=== PATIENT | female | born 1970 | race Caucasian/White ===

== ENCOUNTER → 2016-05-20 | Outpatient (CLI) | payer OTHER ==
[2015-08-19 11:03] VITALS: BP 103/67
[~2016-05-20] MED LIST: ALBU2.5V5 NEB; CALC1TAB PO; CETI10TA22 PO; DICL50TA2 PO; FLUC150T PO; FLUT9.9S NS; MULT1TAB52 PO; PROAIR HFA8.5 GM IH; VENTOLIN HFA18 GM INH
--- NOTE | 2016-05-20 16:23 | RAD ---
Chest CT without contrast Indications: Cough for one year. New antibiotics. Technique: Noncontrast helical CT scanning of the chest was performed. PQRS Compliance Statement: One or more of the following individualized dose reduction techniques were utilized for this examination: 1. Automated exposure control 2. Adjustment of the mA and/or kV according to patient size 3. Use of iterative reconstruction technique Comparison: December 17, 2015. Findings: No enlarging thoracic lymphadenopathy is seen. No focal aneurysmal dilatation of the thoracic aorta is seen. The heart size is normal and no pericardial effusion is seen. Again seen are bilateral interstitial and nodular lung infiltrates some of which exhibit a tree-in-bud appearance. There is no change on the right side. There has been interval improvement in the lung infiltrate within the anterior basal and and lateral basal segments of the left lower lobe. However, there is an increase in this infiltrate within the posterior basal segment of the left lower lobe. No enlarging lung mass seen. No lung infiltrate with air bronchograms is seen. Bronchiectasis is again apparent. Postoperative changes of the right lung field are again apparent. No pleural effusion or pneumothorax is seen. The proximal bronchial tree is patent. No adrenal mass is seen. No osteolytic process is seen. IMPRESSION: Bilateral interstitial and nodular lung infiltrates including tree-in-bud appearance type lung infiltrates. Stable the right side. Improvement of the anterior and lateral basal segments of the left lower lobe but worsening in the posterior basal segment of the left lower lobe.
== END | disposition home or self-care (01) ==
LOC: CT 13:07
PROVIDERS: ATTEND Internal Medicine Critical Care Medicine
DX: J84.9 Interstitial pulmonary disease, unspecified (principal)
CPT/HCPCS: 71250

== ENCOUNTER → 2017-05-19 | Outpatient (CLI) | payer OTHER | END | disposition home or self-care (01) | LOC: CT 14:38 | DX: A31.0 Pulmonary mycobacterial infection (principal); J84.9 Interstitial pulmonary disease, unspecified; J47.0 Bronchiectasis with acute lower respiratory infection; R05 Cough | CPT/HCPCS: 71250 ==

== ENCOUNTER → 2021-02-10 | Outpatient (CLI) | payer BC, OTHER ==
[2015-08-19 11:03] VITALS: BP 103/67
[~2021-02-10] MED LIST changes: +ALBU2.5V8 IH; -CETI10TA22 PO; +CETI10TA74 PO; +MULT-445 PO; -MULT1TAB52 PO; -PROAIR HFA8.5 GM IH
--- NOTE | 2021-02-10 16:37 | KCIC ---
EXAMINATION: DG VIDEO SWALLOW STUDY (ESOPHAGRAM) CLINICAL HISTORY: Intermittent dysphagia x1 year. TECHNIQUE: Double contrast esophagram performed utilizing effervescent granules followed by oral admi nistration of thick and thin barium. - Number of Images: 16 - Fluoroscopy Time: 1:06 (minutes:seconds) COMPARISON: None FINDINGS: Hypopharynx and cervical esophagus unremarkable. No evidence of esophageal stricture, ring, or mass. No evidence of esophagitis. No hiatal hernia. No reflux elicited despite provocative maneuvers. Esophageal motility within normal limits. IMPRESSION: Unremarkable esophagram. Electronically signed by: Jose Sullivan DO (02/10/2021 4:35 PM) [id number]
== END ==
LOC: KCIC 15:39
PROVIDERS: ATTEND Internal Medicine Gastroenterology
DX: R13.10 Dysphagia, unspecified (principal)
CPT/HCPCS: 74220

== ENCOUNTER → 2021-02-27 | Day surgery (SDC) | payer BC ==
[~2021-02-27] VITALS: Ht 170.2 cm; Wt 70.0 kg
[~2021-02-27] MED LIST changes: +HYDROmorphone 2 MG/ML INJ. IVP PRN; +IV RINGERS,LACTATED 1000ML 1,000 ML IV SCH; +MORPHINE SULFATE 2 MG/ML INJ. IVP PRN; +PROCHLORPERAZINE 10 MG/2 ML VIAL. IVP PRN
[2021-02-27 09:31] VITALS: BP 89/65
[2021-02-27 11:20] VITALS: BP 116/71
== END | disposition home or self-care (01) ==
LOC: ENDOS 08:57
PROVIDERS: ATTEND Internal Medicine Gastroenterology
DX: R19.5 Other fecal abnormalities (principal); R13.10 Dysphagia, unspecified; K64.0 First degree hemorrhoids; R05.3 Chronic cough; K21.00 Gastro-esophageal reflux disease with esophagitis, without bleeding; K44.9 Diaphragmatic hernia without obstruction or gangrene; K62.1 Rectal polyp; K29.50 Unspecified chronic gastritis without bleeding; K63.89 Other specified diseases of intestine; K31.89 Other diseases of stomach and duodenum; J45.909 Unspecified asthma, uncomplicated; F32.9 Major depressive disorder, single episode, unspecified; Z79.899 Other long term (current) drug therapy; Z88.1 Allergy status to other antibiotic agents; Z88.8 Allergy status to other drugs, medicaments and biological substances; Z98.890 Other specified postprocedural states
CPT/HCPCS: 43239; 43450; 45380; 88305; 88342

== ENCOUNTER 2021-05-18 16:46 | Inpatient (IN) | payer BC ==
[~2021-05-18] VITALS: Ht 170.2 cm; Wt 76.0 kg
[~2021-05-18 16:46] MED LIST changes: -HYDROmorphone 2 MG/ML INJ. IVP PRN; -IV RINGERS,LACTATED 1000ML 1,000 ML IV SCH; -MORPHINE SULFATE 2 MG/ML INJ. IVP PRN; -PROCHLORPERAZINE 10 MG/2 ML VIAL. IVP PRN
[2021-05-18] MEDS ORDERED: RACEPINEPHRINE 2.25% 0.5 ML NEBU. ONE (17:14)
[2021-05-18] MEDS ORDERED: methylPREDNISolone SOD SUCC PF 125 MG/2 ML VIAL. IV ONE (17:15)
[2021-05-18] MEDS ORDERED: IV NORMAL SALINE 1000ML BAG 1,000 ML IV ONE (17:15)
[2021-05-18] MEDS ORDERED: EPINEPHrine 1 MG/ML VIAL IM ONE ×2 (17:15)
[2021-05-18] MEDS ORDERED: MAGNESIUM SULFATE 2GM 50 ML IV ONE (17:15)
[2021-05-18] MEDS ORDERED: IPRATRPIUM/ALBUTEROL 0.5/2.5MG 3 ML NEBU. NEB ONE (17:15)
[2021-05-18 17:38] LABS: BASO # 0.1 x10^3/uL (0.0-0.2); BASO % 1 % (0-3); EOS # 0.1 x10^3/uL (0.0-0.7); EOS % 1 % (0-3); HEMATOCRIT 41.7 % (36.0-47.0); HEMOGLOBIN 14.4 g/dL (12.0-15.5); LYMPH # 1.8 x10^3/uL (1.0-4.8); LYMPH % 17 % (24-48); MEAN CORPUSCULAR HEMOGLOBIN 30 pg (25-35); MEAN CORPUSCULAR HGB CONC 35 g/dL (31-37); MEAN CORPUSCULAR VOLUME 85 fL (79-100); MONO # 1.1 x10^3/uL (0.0-1.1); MONO % 10 % (0-9); NEUT # 7.5 x10^3/uL (1.8-7.7); NEUT % 71 % (31-73); PLATELET COUNT 297 x10^3/uL (140-400); RED BLOOD COUNT 4.89 x10^6/uL (3.50-5.40); RED CELL DISTRIBUTION WIDTH 14.4 % (11.5-14.5); WHITE BLOOD COUNT 10.6 x10^3/uL (4.0-11.0)
[2021-05-18 17:40] LABS: BASE EXCESS ABG 1 mmol/L (-3-3); HCO3 ABG 22 mmol/L (21-28); PCO2 ABG 27 mmHg (35-46); PO2 ABG 136 mmHg (75-108); SAT O2 ABG 99 % (92-99)
[2021-05-18 17:43] LABS: FIO2 ABG 10 L Mask
[2021-05-18 17:55] LABS: CALCIUM 9.2 mg/dL (8.5-10.1); POTASSIUM 3.9 mmol/L (3.5-5.1)
[2021-05-18 18:01] LABS: ALBUMIN/GLOBULIN RATIO 1.1 (1.0-1.7); MAGNESIUM 1.8 mg/dL (1.8-2.4); TOTAL BILIRUBIN 0.2 mg/dL (0.2-1.0); TOTAL PROTEIN 7.5 g/dL (6.4-8.2)
--- NOTE | 2021-05-18 18:46 | PHYS DOC ---
Past Medical History Additional Past Medical Histor: SEASONAL ALLERGY, MAC Past Surgical History: Other Additional Past Surgical Histo: RIGHT MIDDLE LOBE BIOPSY Smoking Status: Never Smoker Adult General Chief Complaint Chief Complaint: ASTHMA HPI HPI The patient is a 51-year-old female with a history of asthma/COPD (severe, with multiple hospitalizations in the past) as well as some form of interstitial lung disease (she and her are unable to be more specific but state that patient follows with Dr. Loaiza of pulmonology; no notes are readily accessible for review since the patient's last admission in 2015). She has never smoked. Ms. Díaz presents for evaluation of progressively worsening shortness of breath over the past 3 to 4 days. Called to the waiting room upon arrival as after the patient rolled in from the parking lot she became severely dyspneic. On auscultation, moving very little air and struggling to breathe. Symptoms feel consistent with prior asthma exacerbation. Alert and responsive. Back to an ED bed immediately and intramuscular epinephrine, continuous bronchodilator therapy, methylprednisolone and magnesium given with significant improvement. Patient placed on BiPAP as well. With these interventions, patient has dramatically improved. Unable to provide much history initially aside from indicating that she was not having any chest pain and was not hurting anywhere. Review of Systems Review of Systems A 12 point review of systems was completed and was negative except where noted in HPI above. Current Medications Current Medications Current Medications Medications (Trade) Dose Ordered Sig/Dionisio Start Time Stop Time Status Last Admin Dose Admin Albuterol/ Ipratropium (Duoneb) 3 ml 1X ONCE 05/18/21 17:15 05/18/21 17:16 DC Epinephrine (S2 Racepinephrine) 0.5 ml STK-MED ONCE 05/18/21 17:14 05/18/21 17:14 DC Epinephrine HCl (Adrenalin) 0.5 mg 1X ONCE 05/18/21 17:15 05/18/21 17:21 DC Magnesium Sulfate 50 ml @ 25 mls/hr 1X ONCE 05/18/21 17:15 05/18/21 19:14 05/18/21 17:45 25 MLS/HR Methylprednisolone Sodium Succinate (SOLU-Medrol 125MG VIAL) 125 mg 1X ONCE 05/18/21 17:15 05/18/21 17:21 DC 05/18/21 17:45 125 MG Sodium Chloride 1,000 ml @ 1,000 mls/hr 1X ONCE 05/18/21 17:15 05/18/21 18:14 DC 05/18/21 17:45 1,000 MLS/HR Allergies Allergies Allergies Coded Allergies Type Severity Reaction Last Updated Verified aspirin Allergy Intermediate swelling and nose bleeds 05/18/21 Yes ciprofloxacin Allergy Intermediate Rash 05/18/21 Yes shrimp Allergy Intermediate 05/18/21 Yes diclofenac Adverse Reaction Mild Pt can only take POTASSIUM salt of Diclofenac 05/18/21 Yes Physical Exam Physical Exam 51-year-old female appearing nontoxic and in moderate respiratory distress. Head is normocephalic and atraumatic. Neck is supple and nontender. Oropharynx is moist. Lungs with minimal air movement and soft wheezes heard to all kasper. There is a normal S1 and S2 without rubs or gallops and capillary refill is appropriate, less than 2 seconds globally. Abdomen is soft, nontender nondistended without pulsatile mass. Skin is warm and dry without cyanosis, clubbing or edema. Psychiatrically, the patient demonstrates appropriate mood and affect and is alert. Evaluation of the extremities reveals BUEs and BLEs neurovascularly intact distally with strength 5-5, sensation intact light touch in all nerve distributions, radial, DP and PT pulses 2+ and equal bilaterally, capillary refill less than 2 seconds, hands and feet warm and well-perfused. No dependent peripheral edema distally. No calf tenderness or swelling bilaterally. Homans test is negative bilaterally. Current Patient Data Vital Signs Vital Signs Date Time Temp Pulse Resp B/P (MAP) Pulse Ox O2 Delivery O2 Flow Rate FiO2 05/18/21 18:07 100 BiPAP/CPAP 05/18/21 17:13 97.6 109 40 160/97 (118) 15.0 97.6 Lab Values Laboratory Tests Test 05/18/21 17:22 05/18/21 17:33 White Blood Count 10.6 x10^3/uL (4.0-11.0) Red Blood Count 4.89 x10^6/uL (3.50-5.40) Hemoglobin 14.4 g/dL (12.0-15.5) Hematocrit 41.7 % (36.0-47.0) Mean Corpuscular Volume 85 fL (79-100) Mean Corpuscular Hemoglobin 30 pg (25-35) Mean Corpuscular Hemoglobin Concent 35 g/dL (31-37) Red Cell Distribution Width 14.4 % (11.5-14.5) Platelet Count 297 x10^3/uL (140-400) Neutrophils (%) (Auto) 71 % (31-73) Lymphocytes (%) (Auto) 17 % (24-48) L Monocytes (%) (Auto) 10 % (0-9) H Eosinophils (%) (Auto) 1 % (0-3) Basophils (%) (Auto) 1 % (0-3) Neutrophils # (Auto) 7.5 x10^3/uL (1.8-7.7) Lymphocytes # (Auto) 1.8 x10^3/uL (1.0-4.8) Monocytes # (Auto) 1.1 x10^3/uL (0.0-1.1) Eosinophils # (Auto) 0.1 x10^3/uL (0.0-0.7) Basophils # (Auto) 0.1 x10^3/uL (0.0-0.2) Sodium Level 142 mmol/L (136-145) Potassium Level 3.9 mmol/L (3.5-5.1) Chloride Level 104 mmol/L (98-107) Carbon Dioxide Level 27 mmol/L (21-32) Anion Gap 11 (6-14) Blood Urea Nitrogen 10 mg/dL (7-20) Creatinine 1.0 mg/dL (0.6-1.0) Estimated GFR (Cockcroft-Gault) 58.0 BUN/Creatinine Ratio 10 (6-20) Glucose Level 96 mg/dL (70-99) Calcium Level 9.2 mg/dL (8.5-10.1) Magnesium Level 1.8 mg/dL (1.8-2.4) Total Bilirubin 0.2 mg/dL (0.2-1.0) Aspartate Amino Transferase (AST) 49 U/L (15-37) H Alanine Aminotransferase (ALT) 60 U/L (14-59) H Alkaline Phosphatase 125 U/L (46-116) H Troponin I High Sensitivity < 4 ng/L (4-50) L JV-Buq-B-Type Natriuretic Peptide 224 pg/mL (0-124) H Total Protein 7.5 g/dL (6.4-8.2) Albumin 4.0 g/dL (3.4-5.0) Albumin/Globulin Ratio 1.1 (1.0-1.7) O2 Saturation 99 % (92-99) Arterial Blood pH 7.54 (7.35-7.45) H Arterial Blood pCO2 at Patient Temp 27 mmHg (35-46) L Arterial Blood pO2 at Patient Temp 136 mmHg (75-108) H Arterial Blood HCO3 22 mmol/L (21-28) Arterial Blood Base Excess 1 mmol/L (-3-3) FiO2 10 l mask Laboratory Tests 05/18/21 17:22 Laboratory Tests 05/18/21 17:22 EKG EKG Sinus rhythm, rate 94, no acute ST elevation or depression, ME 108, QRS 78, QTc 446, EP interpretation. Nonischemic tracing, intervals appropriate. Radiology/Procedures Radiology/Procedures XR chest: Hyperexpanded lung kasper. No obvious confluent infiltrates. EP interpretation. Formal radiology interpretation is to follow. Course & Med Decision Making Course & Med Decision Making Patient dramatically improved as per narrative above. Resting comfortably on BiPAP and moving air well, able to speak comfortably in full sentences. Will likely be able to be titrated off BiPAP in the near future. Work-up thus far unremarkable and reassuring. Will cover with a dose of Rocephin for infectious etiologies after cultures. Have added on a D-dimer. Will bring in for further care under Dr. Cross, who graciously accepts. Critical care time was 47 minutes for acute hypoxemic respiratory failure. Dragon Disclaimer Dragon Disclaimer This electronic medical record was generated, in whole or in part, using a voice recognition dictation system. Departure Departure Impression: Primary Impression: Asthma with acute exacerbation Additional Impression: Acute hypoxemic respiratory failure Disposition: ADMITTED INPATIENT Condition: GUARDED Referrals: EDILBERTO MCINTYRE (PCP) Problem Qualifiers Primary Impression: Asthma with acute exacerbation Asthma severity: severe Asthma persistence: persistent Qualified Codes: J45.51 - Severe persistent asthma with (acute) exacerbation MARLY TEMPEL MD May 18, 2021 18:46
[2021-05-18] MEDS ORDERED: ONDANSETRON PF 4 MG/2 ML VIAL. IVP PRN (19:00)
[2021-05-18] MEDS ORDERED: IPRATRPIUM/ALBUTEROL 0.5/2.5MG 3 ML NEBU. NEB SCH ×2 (19:00→22:00)
[2021-05-18] MEDS ORDERED: ACETAMINOPHEN 325 MG TABLET. PO PRN (19:00)
[2021-05-18] MEDS ORDERED: methylPREDNISolone SOD SUCC PF 125 MG/2 ML VIAL. IV SCH (19:00)
[2021-05-18] MEDS ORDERED: cefTRIAXone IV Push 1 GM VIAL. IVP ONE (19:00)
[2021-05-18 19:39] LABS: INFLUENZA A PATIENT NEGATIVE (NEGATIVE); INFLUENZA B PATIENT NEGATIVE (NEGATIVE)
--- NOTE | 2021-05-18 19:59 | RAD ---
Exam: Chest one view INDICATION: Short of air TECHNIQUE: Frontal view of the Comparisons: Chest CT 05/19/2017 FINDINGS: The cardiomediastinal silhouette and pulmonary vessels are within normal limits. Strandy bibasilar airspace disease. No pleural effusion. IMPRESSION: Strandy bibasilar airspace disease may be infectious or inflammatory in etiology. Electronically signed by: Gab Duong MD (05/18/2021 7:57 PM) TARUN
[2021-05-18] MEDS ORDERED: FLUT1BLS3 PO (20:18)
[2021-05-18] MEDS ORDERED: CEPH500C PO (20:18)
[2021-05-18 20:20] VITALS: BP 140/64
--- NOTE | 2021-05-18 22:11 | PDOC1 ---
History and Physical Date of Admission Date of Admission DATE: 05/18/21 TIME: 22:11 Source Source: Chart review, Patient History of Present Illness History of Present Illness The patient is a 51-year-old female with known prior lung disease, admit for progressively worsening shortness of breath over days. She has dry chronic cough, has 3 days of worsening shortness of breath and chills, which is normal for an exacerbation for her. In the waiting room, she was severely dyspneic, RT called stat to the ER. Treated as asthma, BIPAP started, steroids, Dr. Gomez found she was moving very little air and struggling to breathe. 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, her daughter is a Family practice resident in [place], Past Medical History Past Medical History asthma/COPD interstitial lung disease Cardiovascular: No pertinent hx Pulmonary: Asthma, Bronchitis, COPD, Other GI: No pertinent hx Heme/Onc: No pertinent hx Endocrine: No pertinent hx Dermatology: No pertinent hx Past Surgical History Past Surgical History: No pertinent history Family History Family History most persons live into their 90s Social History Smoke: No (never) ALCOHOL: none Drugs: None Current Problem List Problem List Problems Medical Problems: (1) Acute hypoxemic respiratory failure Status: Acute (2) Asthma with acute exacerbation Status: Acute Current Medications Current Medications Current Medications Albuterol/ Ipratropium (Duoneb) 3 ml 1X ONCE NEB ; Start 05/18/21 at 17:15; Stop 05/18/21 at 17:16; Status DC Epinephrine HCl (Adrenalin) 0.3 mg 1X ONCE IM ; Start 05/18/21 at 17:15; Stop 05/18/21 at 17:16; Status DC Epinephrine (S2 Racepinephrine) 0.5 ml STK-MED ONCE .ROUTE ; Start 05/18/21 at 17:14; Stop 05/18/21 at 17:14; Status DC Epinephrine HCl (Adrenalin) 0.5 mg 1X ONCE IM ; Start 05/18/21 at 17:15; Stop 05/18/21 at 17:21; Status DC Methylprednisolone Sodium Succinate (SOLU-Medrol 125MG VIAL) 125 mg 1X ONCE IV Last administered on 05/18/21at 17:45; Start 05/18/21 at 17:15; Stop 05/18/21 at 17:21; Status DC Magnesium Sulfate 50 ml @ 25 mls/hr 1X ONCE IV Last administered on 05/18/21at 17:45; Start 05/18/21 at 17:15; Stop 05/18/21 at 19:14; Status DC Sodium Chloride 1,000 ml @ 1,000 mls/hr 1X ONCE IV Last administered on 05/18/21at 17:45; Start 05/18/21 at 17:15; Stop 05/18/21 at 18:14; Status DC Ondansetron HCl (Zofran) 4 mg PRN Q8HRS PRN IVP NAUSEA/VOMITING; Start 05/18/21 at 19:00; Stop 05/19/21 at 18:59 Acetaminophen (Tylenol) 650 mg PRN Q4HRS PRN PO FEVER > 100.3'F; Start 05/18/21 at 19:00; Stop 05/19/21 at 18:59 Albuterol/ Ipratropium (Duoneb) 3 ml Q4H NEB Last administered on 05/18/21at 21:23; Start 05/18/21 at 19:00; Stop 05/18/21 at 21:53; Status DC Methylprednisolone Sodium Succinate (SOLU-Medrol 125MG VIAL) 62.5 mg Q6H IV ; Start 05/18/21 at 19:00 Ceftriaxone Sodium (Rocephin) 1 gm 1X ONCE IVP Last administered on 05/18/21at 19:46; Start 05/18/21 at 19:00; Stop 05/18/21 at 19:10; Status DC Cetirizine HCl (ZyrTEC) 10 mg DAILY PO ; Start 05/19/21 at 09:00 Calcium/Vitamin D (Oscal D 500mg/ 200uts) 1 tab BIDWMEALS PO ; Start 05/19/21 at 08:00; Stop 05/18/21 at 22:02; Status DC Fluticasone Propionate (Flonase) 2 spray DAILY NS ; Start 05/19/21 at 09:00 Multivitamins (Thera M Plus) 1 tab DAILY PO ; Start 05/19/21 at 09:00; Stop 05/18/21 at 21:46; Status DC Multivitamins (Thera M Plus) 1 tab QHS PO ; Start 05/18/21 at 22:00 Fluconazole (Diflucan) 100 mg DAILY PO ; Start 05/18/21 at 22:00 Cephalexin HCl (Keflex) 500 mg BID PO ; Start 05/18/21 at 22:00; Stop 05/22/21 at 22:00 Albuterol/ Ipratropium (Duoneb) 3 ml Q4HRS W/A NEB ; Start 05/18/21 at 22:00; Stop 05/19/21 at 18:59 Calcium/Vitamin D (Oscal D 500mg/ 200uts) 1 tab BIDWMEALS PO ; Start 05/18/21 at 22:00 Active Scripts Active Reported Trelegy Ellipta 100-62.5-25 (Fluticasone/Umeclidin/Vilanter) 1 Each Blst.w.dev 1 Puff PO DAILY Keflex (Cephalexin) 500 Mg Capsule 1 Cap PO BID started Caltrate 600 + D Tablet (Calcium Carbonate/Vitamin D3) 1 Each Tablet 1 Each PO BID Zyrtec (Cetirizine Hcl) 10 Mg Tablet 1 Tab PO DAILY Flonase Allergy Relief (Fluticasone Propionate) 9.9 Ml [place].susp 2 Sprays NS DAILY Albuterol Sulfate Neb Soln (Albuterol Sulfate) 2.5 Mg/3 Ml Vial.neb 1 Vial NEB PRN Q4HRS PRN Ventolin Hfa Inhaler (Albuterol Sulfate) 18 Gm Hfa.aer.ad 2 Puff INH Q4HRS PRN Multivitamins (Multivitamin) 1 Each Tablet 1 Tab PO DAILY Allergies Allergies: Coded Allergies: aspirin (Verified Allergy, Intermediate, swelling and nose bleeds, 05/18/21) ibuprofen ok ciprofloxacin (Verified Allergy, Intermediate, Rash, 05/18/21) shrimp (Verified Allergy, Intermediate, 05/18/21) swelling diclofenac (Verified Adverse Reaction, Mild, Pt can only take POTASSIUM salt of Diclofenac, 05/18/21) ROS General: YES: Chills, Fatigue, Malaise PSYCHOLOGICAL ROS: No: Anxiety, Behavioral Disorder, Concentration difficultie, Decreased libido, Depression, Disorientation, Hallucinations, Hostility, Irritablity, Memory difficulties, Mood Swings, Obsessive thoughts, Physical abuse, Sexual abuse, Sleep disturbances, Suicidal ideation, Other Eyes: No Blurry vision, No Decreased vision, No Double vision, No Dry eyes, No Excessive tearing, No Eye Pain, No Itchy Eyes, No Loss of vision, No Photophobia, No Scotomata, No Uses contacts, No Uses glasses, No Other HEENT: No: Heacaches, Visual Changes, Hearing change, Nasal congestion, Nasal discharge, Oral lesions, Sinus pain, Sore Throat, Epistaxis, Sneezing, Snoring, Tinnitus, Vertigo, Vocal changes, Other Respiratory: YES: Shortness of breath, SOB with excertion, Sputum Changes, Tachypnea, Wheezing; No: Cough, Hemoptysis, Orthopnea, Pleuritic Pain, Stridor, Other Cardiovascular: No Chest Pain, No Palpitations, No Orthopnea, No Paroxysmal Noc. Dyspnea, No Edema, No Lt Headedness, No Other Gastrointestinal: No Nausea, No Vomiting, No Abdominal Pain, No Diarrhea, No Constipation, No Melena, No Hematochezia, No Other Genitourinary: No Dysuria, No Frequency, No Incontinence, No Hematuria, No Retention, No Discharge, No Urgency, No Pain, No Flank Pain, No Other, No , No , No , No , No , No , No Musculoskeletal: No Gait Disturbance, No Joint Pain, No Joint Stiffness, No Joint Swelling, No Muscle Pain, No Muscular Weakness, No Pain In:, No Swelling In:, No Other Neurological: No Behavorial Changes, No Bowel/Bladder ControlChng, No Confusion, No Dizziness, No Gait Disturbance, No Headaches, No Impaired Coord/balance, No Memory Loss, No Numbness/Tingling, No Seizures, No Speech Prob lems, No Tremors, No Visual Changes, No Weakness, No Other Skin: Yes Dry Skin; No Eczema, No Hair Changes, No Lumps, No Mole Changes, No Mottling, No Nail Changes, No Pruritus, No Rash, No Skin Lesion Changes, No Other, No Acne Physical Exam General: Alert, Oriented X3, Cooperative, mild distress, moderate distress HEENT: Atraumatic, PERRLA Lungs: Other (limtied vol , end rales, no wheeze, no rhonchi) Heart: S1S2, no murmurs, other Abdomen: Normal bowel sounds Extremities: No clubbing, No edema Skin: No breakdown Neuro: Normal speech, Normal tone, Sensation intact Psych/Mental Status: Mental status NL, Mood NL Vitals Vitals Vital Signs Date Time Temp Pulse Resp B/P (MAP) Pulse Ox O2 Delivery O2 Flow Rate FiO2 05/18/21 21:26 97 Nasal Cannula 2.0 05/18/21 20:20 99.7 97 22 140/64 (89) 99.7 Labs Labs Laboratory Tests Test 05/18/21 17:22 05/18/21 17:33 05/18/21 19:04 05/18/21 19:05 White Blood Count 10.6 x10^3/uL (4.0-11.0) Red Blood Count 4.89 x10^6/uL (3.50-5.40) Hemoglobin 14.4 g/dL (12.0-15.5) Hematocrit 41.7 % (36.0-47.0) Mean Corpuscular Volume 85 fL (79-100) Mean Corpuscular Hemoglobin 30 pg (25-35) Mean Corpuscular Hemoglobin Concent 35 g/dL (31-37) Red Cell Distribution Width 14.4 % (11.5-14.5) Platelet Count 297 x10^3/uL (140-400) Neutrophils (%) (Auto) 71 % (31-73) Lymphocytes (%) (Auto) 17 % (24-48) Monocytes (%) (Auto) 10 % (0-9) Eosinophils (%) (Auto) 1 % (0-3) Basophils (%) (Auto) 1 % (0-3) Neutrophils # (Auto) 7.5 x10^3/uL (1.8-7.7) Lymphocytes # (Auto) 1.8 x10^3/uL (1.0-4.8) Monocytes # (Auto) 1.1 x10^3/uL (0.0-1.1) Eosinophils # (Auto) 0.1 x10^3/uL (0.0-0.7) Basophils # (Auto) 0.1 x10^3/uL (0.0-0.2) D-Dimer (Moni) < 0.27 ug/mlFEU Sodium Level 142 mmol/L (136-145) Potassium Level 3.9 mmol/L (3.5-5.1) Chloride Level 104 mmol/L (98-107) Carbon Dioxide Level 27 mmol/L (21-32) Anion Gap 11 (6-14) Blood Urea Nitrogen 10 mg/dL (7-20) Creatinine 1.0 mg/dL (0.6-1.0) Estimated GFR (Cockcroft-Gault) 58.0 BUN/Creatinine Ratio 10 (6-20) Glucose Level 96 mg/dL (70-99) Calcium Level 9.2 mg/dL (8.5-10.1) Magnesium Level 1.8 mg/dL (1.8-2.4) Total Bilirubin 0.2 mg/dL (0.2-1.0) Aspartate Amino Transf (AST/SGOT) 49 U/L (15-37) Alanine Aminotransferase (ALT/SGPT) 60 U/L (14-59) Alkaline Phosphatase 125 U/L (46-116) Troponin I High Sensitivity < 4 ng/L (4-50) 5 ng/L (4-50) UQ-Zvh-S-Type Natriuretic Peptide 224 pg/mL (0-124) Total Protein 7.5 g/dL (6.4-8.2) Albumin 4.0 g/dL (3.4-5.0) Albumin/Globulin Ratio 1.1 (1.0-1.7) O2 Saturation 99 % (92-99) Arterial Blood pH 7.54 (7.35-7.45) Arterial Blood pCO2 at Patient Temp 27 mmHg (35-46) Arterial Blood pO2 at Patient Temp 136 mmHg (75-108) Arterial Blood HCO3 22 mmol/L (21-28) Arterial Blood Base Excess 1 mmol/L (-3-3) FiO2 10 l mask Influenza Type A Antigen Negative (NEGATIVE) Influenza Type B Antigen Negative (NEGATIVE) SARS-CoV-2 Antigen (Rapid) Negative (NEGATIVE) Laboratory Tests Test 05/18/21 17:22 05/18/21 17:33 05/18/21 19:04 05/18/21 19:05 White Blood Count 10.6 x10^3/uL (4.0-11.0) Red Blood Count 4.89 x10^6/uL (3.50-5.40) Hemoglobin 14.4 g/dL (12.0-15.5) Hematocrit 41.7 % (36.0-47.0) Mean Corpuscular Volume 85 fL (79-100) Mean Corpuscular Hemoglobin 30 pg (25-35) Mean Corpuscular Hemoglobin Concent 35 g/dL (31-37) Red Cell Distribution Width 14.4 % (11.5-14.5) Platelet Count 297 x10^3/uL (140-400) Neutrophils (%) (Auto) 71 % (31-73) Lymphocytes (%) (Auto) 17 % (24-48) Monocytes (%) (Auto) 10 % (0-9) Eosinophils (%) (Auto) 1 % (0-3) Basophils (%) (Auto) 1 % (0-3) Neutrophils # (Auto) 7.5 x10^3/uL (1.8-7.7) Lymphocytes # (Auto) 1.8 x10^3/uL (1.0-4.8) Monocytes # (Auto) 1.1 x10^3/uL (0.0-1.1) Eosinophils # (Auto) 0.1 x10^3/uL (0.0-0.7) Basophils # (Auto) 0.1 x10^3/uL (0.0-0.2) D-Dimer (Moni) < 0.27 ug/mlFEU Sodium Level 142 mmol/L (136-145) Potassium Level 3.9 mmol/L (3.5-5.1) Chloride Level 104 mmol/L (98-107) Carbon Dioxide Level 27 mmol/L (21-32) Anion Gap 11 (6-14) Blood Urea Nitrogen 10 mg/dL (7-20) Creatinine 1.0 mg/dL (0.6-1.0) Estimated GFR (Cockcroft-Gault) 58.0 BUN/Creatinine Ratio 10 (6-20) Glucose Level 96 mg/dL (70-99) Calcium Level 9.2 mg/dL (8.5-10.1) Magnesium Level 1.8 mg/dL (1.8-2.4) Total Bilirubin 0.2 mg/dL (0.2-1.0) Aspartate Amino Transf (AST/SGOT) 49 U/L (15-37) Alanine Aminotransferase (ALT/SGPT) 60 U/L (14-59) Alkaline Phosphatase 125 U/L (46-116) Troponin I High Sensitivity < 4 ng/L (4-50) 5 ng/L (4-50) AO-Jac-E-Type Natriuretic Peptide 224 pg/mL (0-124) Total Protein 7.5 g/dL (6.4-8.2) Albumin 4.0 g/dL (3.4-5.0) Albumin/Globulin Ratio 1.1 (1.0-1.7) O2 Saturation 99 % (92-99) Arterial Blood pH 7.54 (7.35-7.45) Arterial Blood pCO2 at Patient Temp 27 mmHg (35-46) Arterial Blood pO2 at Patient Temp 136 mmHg (75-108) Arterial Blood HCO3 22 mmol/L (21-28) Arterial Blood Base Excess 1 mmol/L (-3-3) FiO2 10 l mask Influenza Type A Antigen Negative (NEGATIVE) Influenza Type B Antigen Negative (NEGATIVE) SARS-CoV-2 Antigen (Rapid) Negative (NEGATIVE) VTE Prophylaxis Ordered VTE Prophylaxis Devices: Yes VTE Pharmacological Prophylaxi: Yes (refused) Assessment/Plan Assessment/Plan acute hypoxic respiratory failure Asthma exacerbation, steroids, on abx, for UTI, continue, she asked for diflucan for yeast infection that she always gets. she declined Sq heparin for proph "I am ambulatory" Justifications for Admission Other Justification KOBE MOLINA MD May 18, 2021 22:11
[2021-05-18] MEDS: FLUCONAZOLE 100 MG TABLET. PO SCH (22:16)
[2021-05-18] MEDS: MULTIVITAMIN with MINERAL TABLET. PO SCH (22:17)
[2021-05-18] MEDS: CALCIUM CARB/VIT D3 500/200 TABLET. PO SCH (22:17)
[2021-05-18] MEDS: CEPHALEXIN 250 MG CAPSULE. PO SCH (22:17)
[2021-05-18 23:00] VITALS: BP 112/55
[2021-05-19] MEDS: ALBUTEROL SULFATE 2.5 MG/3 ML NEBU. NEB PRN ×2 (01:31→05:56)
[2021-05-19 03:45] VITALS: BP 101/57
[2021-05-19 05:34] LABS: BASO % 0 % (0-3); EOS % 0 % (0-3); HEMATOCRIT 36.1 % (36.0-47.0); LYMPH # 0.4 x10^3/uL (1.0-4.8); LYMPH % 8 % (24-48); MEAN CORPUSCULAR HEMOGLOBIN 28 pg (25-35); MEAN CORPUSCULAR HGB CONC 33 g/dL (31-37); MEAN CORPUSCULAR VOLUME 85 fL (79-100); MONO # 0.1 x10^3/uL (0.0-1.1); MONO % 3 % (0-9); NEUT # 4.8 x10^3/uL (1.8-7.7); NEUT % 90 % (31-73); PLATELET COUNT 208 x10^3/uL (140-400); RED BLOOD COUNT 4.22 x10^6/uL (3.50-5.40); RED CELL DISTRIBUTION WIDTH 14.6 % (11.5-14.5); WHITE BLOOD COUNT 5.4 x10^3/uL (4.0-11.0)
[2021-05-19 05:50] LABS: CALCIUM 8.5 mg/dL (8.5-10.1); CREATININE 0.9 mg/dL (0.6-1.0); GFR 65.5; POTASSIUM 3.8 mmol/L (3.5-5.1)
[2021-05-19 07:00] VITALS: BP 100/65
[2021-05-19] MEDS: IPRATRPIUM/ALBUTEROL 0.5/2.5MG 3 ML NEBU. NEB SCH ×4 (07:27→20:51)
[2021-05-19] MEDS: BUDESONIDE 0.5 MG/2 ML NEBU. NEB SCH ×2 (07:27→20:51)
[2021-05-19] MEDS ORDERED: CALCIUM CARB/VIT D3 500/200 TABLET. PO SCH (08:00)
[2021-05-19] MEDS: CETIRIZINE HCL 10 MG TABLET. PO SCH (08:41)
[2021-05-19] MEDS: FLUCONAZOLE 100 MG TABLET. PO SCH (08:41)
[2021-05-19] MEDS: CEPHALEXIN 250 MG CAPSULE. PO SCH ×2 (08:41→21:20)
[2021-05-19] MEDS: CALCIUM CARB/VIT D3 500/200 TABLET. PO SCH ×2 (08:41→17:14)
[2021-05-19] MEDS: methylPREDNISolone SOD SUCC PF 125 MG/2 ML VIAL. IV SCH ×2 (08:43→21:24)
[2021-05-19] MEDS: FLUTICASONE 50MCG/NASAL SPRAY 16GM BOTTLE. NS SCH (08:43)
[2021-05-19] MEDS ORDERED: MULTIVITAMIN with MINERAL TABLET. PO SCH (09:00)
[2021-05-19] MEDS ORDERED: FLUCONAZOLE 100 MG TABLET. PO SCH (09:00)
--- NOTE | 2021-05-19 10:32 | PDOC ---
PULMONARY PROGRESS NOTES DATE: 05/19/21 TIME: 10:31 Vitals Vital Signs Date Time Temp Pulse Resp B/P (MAP) Pulse Ox O2 Delivery O2 Flow Rate FiO2 05/19/21 08:00 Nasal Cannula 2.0 05/19/21 07:30 95 05/19/21 07:00 97.6 93 22 100/65 (77) 97.6 General: Alert, Oriented X4, No acute distress Lungs: Clear, Other Cardiovascular: S1, S2 Abdomen: Soft, Non-tender Extremities: No Edema Labs Laboratory Tests Test 05/18/21 17:22 05/18/21 17:33 05/18/21 19:04 05/18/21 19:05 White Blood Count 10.6 x10^3/uL (4.0-11.0) Red Blood Count 4.89 x10^6/uL (3.50-5.40) Hemoglobin 14.4 g/dL (12.0-15.5) Hematocrit 41.7 % (36.0-47.0) Mean Corpuscular Volume 85 fL (79-100) Mean Corpuscular Hemoglobin 30 pg (25-35) Mean Corpuscular Hemoglobin Concent 35 g/dL (31-37) Red Cell Distribution Width 14.4 % (11.5-14.5) Platelet Count 297 x10^3/uL (140-400) Neutrophils (%) (Auto) 71 % (31-73) Lymphocytes (%) (Auto) 17 % (24-48) Monocytes (%) (Auto) 10 % (0-9) Eosinophils (%) (Auto) 1 % (0-3) Basophils (%) (Auto) 1 % (0-3) Neutrophils # (Auto) 7.5 x10^3/uL (1.8-7.7) Lymphocytes # (Auto) 1.8 x10^3/uL (1.0-4.8) Monocytes # (Auto) 1.1 x10^3/uL (0.0-1.1) Eosinophils # (Auto) 0.1 x10^3/uL (0.0-0.7) Basophils # (Auto) 0.1 x10^3/uL (0.0-0.2) D-Dimer (Moni) < 0.27 ug/mlFEU Sodium Level 142 mmol/L (136-145) Potassium Level 3.9 mmol/L (3.5-5.1) Chloride Level 104 mmol/L (98-107) Carbon Dioxide Level 27 mmol/L (21-32) Anion Gap 11 (6-14) Blood Urea Nitrogen 10 mg/dL (7-20) Creatinine 1.0 mg/dL (0.6-1.0) Estimated GFR (Cockcroft-Gault) 58.0 BUN/Creatinine Ratio 10 (6-20) Glucose Level 96 mg/dL (70-99) Calcium Level 9.2 mg/dL (8.5-10.1) Magnesium Level 1.8 mg/dL (1.8-2.4) Total Bilirubin 0.2 mg/dL (0.2-1.0) Aspartate Amino Transf (AST/SGOT) 49 U/L (15-37) Alanine Aminotransferase (ALT/SGPT) 60 U/L (14-59) Alkaline Phosphatase 125 U/L (46-116) Troponin I High Sensitivity < 4 ng/L (4-50) 5 ng/L (4-50) ZF-Ueo-V-Type Natriuretic Peptide 224 pg/mL (0-124) Total Protein 7.5 g/dL (6.4-8.2) Albumin 4.0 g/dL (3.4-5.0) Albumin/Globulin Ratio 1.1 (1.0-1.7) O2 Saturation 99 % (92-99) Arterial Blood pH 7.54 (7.35-7.45) Arterial Blood pCO2 at Patient Temp 27 mmHg (35-46) Arterial Blood pO2 at Patient Temp 136 mmHg (75-108) Arterial Blood HCO3 22 mmol/L (21-28) Arterial Blood Base Excess 1 mmol/L (-3-3) FiO2 10 l mask Influenza Type A Antigen Negative (NEGATIVE) Influenza Type B Antigen Negative (NEGATIVE) SARS-CoV-2 Antigen (Rapid) Negative (NEGATIVE) Test 05/18/21 21:55 05/19/21 04:15 Troponin I High Sensitivity 5 ng/L (4-50) 7 ng/L (4-50) White Blood Count 5.4 x10^3/uL (4.0-11.0) Red Blood Count 4.22 x10^6/uL (3.50-5.40) Hemoglobin 12.0 g/dL (12.0-15.5) Hematocrit 36.1 % (36.0-47.0) Mean Corpuscular Volume 85 fL (79-100) Mean Corpuscular Hemoglobin 28 pg (25-35) Mean Corpuscular Hemoglobin Concent 33 g/dL (31-37) Red Cell Distribution Width 14.6 % (11.5-14.5) Platelet Count 208 x10^3/uL (140-400) Neutrophils (%) (Auto) 90 % (31-73) Lymphocytes (%) (Auto) 8 % (24-48) Monocytes (%) (Auto) 3 % (0-9) Eosinophils (%) (Auto) 0 % (0-3) Basophils (%) (Auto) 0 % (0-3) Neutrophils # (Auto) 4.8 x10^3/uL (1.8-7.7) Lymphocytes # (Auto) 0.4 x10^3/uL (1.0-4.8) Monocytes # (Auto) 0.1 x10^3/uL (0.0-1.1) Eosinophils # (Auto) 0.0 x10^3/uL (0.0-0.7) Basophils # (Auto) 0.0 x10^3/uL (0.0-0.2) Sodium Level 141 mmol/L (136-145) Potassium Level 3.8 mmol/L (3.5-5.1) Chloride Level 108 mmol/L (98-107) Carbon Dioxide Level 24 mmol/L (21-32) Anion Gap 9 (6-14) Blood Urea Nitrogen 12 mg/dL (7-20) Creatinine 0.9 mg/dL (0.6-1.0) Estimated GFR (Cockcroft-Gault) 65.5 Glucose Level 183 mg/dL (70-99) Calcium Level 8.5 mg/dL (8.5-10.1) Laboratory Tests Test 05/18/21 17:22 05/18/21 17:33 05/18/21 19:04 05/18/21 19:05 White Blood Count 10.6 x10^3/uL (4.0-11.0) Red Blood Count 4.89 x10^6/uL (3.50-5.40) Hemoglobin 14.4 g/dL (12.0-15.5) Hematocrit 41.7 % (36.0-47.0) Mean Corpuscular Volume 85 fL (79-100) Mean Corpuscular Hemoglobin 30 pg (25-35) Mean Corpuscular Hemoglobin Concent 35 g/dL (31-37) Red Cell Distribution Width 14.4 % (11.5-14.5) Platelet Count 297 x10^3/uL (140-400) Neutrophils (%) (Auto) 71 % (31-73) Lymphocytes (%) (Auto) 17 % (24-48) Monocytes (%) (Auto) 10 % (0-9) Eosinophils (%) (Auto) 1 % (0-3) Basophils (%) (Auto) 1 % (0-3) Neutrophils # (Auto) 7.5 x10^3/uL (1.8-7.7) Lymphocytes # (Auto) 1.8 x10^3/uL (1.0-4.8) Monocytes # (Auto) 1.1 x10^3/uL (0.0-1.1) Eosinophils # (Auto) 0.1 x10^3/uL (0.0-0.7) Basophils # (Auto) 0.1 x10^3/uL (0.0-0.2) D-Dimer (Moni) < 0.27 ug/mlFEU Sodium Level 142 mmol/L (136-145) Potassium Level 3.9 mmol/L (3.5-5.1) Chloride Level 104 mmol/L (98-107) Carbon Dioxide Level 27 mmol/L (21-32) Anion Gap 11 (6-14) Blood Urea Nitrogen 10 mg/dL (7-20) Creatinine 1.0 mg/dL (0.6-1.0) Estimated GFR (Cockcroft-Gault) 58.0 BUN/Creatinine Ratio 10 (6-20) Glucose Level 96 mg/dL (70-99) Calcium Level 9.2 mg/dL (8.5-10.1) Magnesium Level 1.8 mg/dL (1.8-2.4) Total Bilirubin 0.2 mg/dL (0.2-1.0) Aspartate Amino Transf (AST/SGOT) 49 U/L (15-37) Alanine Aminotransferase (ALT/SGPT) 60 U/L (14-59) Alkaline Phosphatase 125 U/L (46-116) Troponin I High Sensitivity < 4 ng/L (4-50) 5 ng/L (4-50) NN-Nxk-Z-Type Natriuretic Peptide 224 pg/mL (0-124) Total Protein 7.5 g/dL (6.4-8.2) Albumin 4.0 g/dL (3.4-5.0) Albumin/Globulin Ratio 1.1 (1.0-1.7) O2 Saturation 99 % (92-99) Arterial Blood pH 7.54 (7.35-7.45) Arterial Blood pCO2 at Patient Temp 27 mmHg (35-46) Arterial Blood pO2 at Patient Temp 136 mmHg (75-108) Arterial Blood HCO3 22 mmol/L (21-28) Arterial Blood Base Excess 1 mmol/L (-3-3) FiO2 10 l mask Influenza Type A Antigen Negative (NEGATIVE) Influenza Type B Antigen Negative (NEGATIVE) SARS-CoV-2 Antigen (Rapid) Negative (NEGATIVE) Test 05/18/21 21:55 05/19/21 04:15 Troponin I High Sensitivity 5 ng/L (4-50) 7 ng/L (4-50) White Blood Count 5.4 x10^3/uL (4.0-11.0) Red Blood Count 4.22 x10^6/uL (3.50-5.40) Hemoglobin 12.0 g/dL (12.0-15.5) Hematocrit 36.1 % (36.0-47.0) Mean Corpuscular Volume 85 fL (79-100) Mean Corpuscular Hemoglobin 28 pg (25-35) Mean Corpuscular Hemoglobin Concent 33 g/dL (31-37) Red Cell Distribution Width 14.6 % (11.5-14.5) Platelet Count 208 x10^3/uL (140-400) Neutrophils (%) (Auto) 90 % (31-73) Lymphocytes (%) (Auto) 8 % (24-48) Monocytes (%) (Auto) 3 % (0-9) Eosinophils (%) (Auto) 0 % (0-3) Basophils (%) (Auto) 0 % (0-3) Neutrophils # (Auto) 4.8 x10^3/uL (1.8-7.7) Lymphocytes # (Auto) 0.4 x10^3/uL (1.0-4.8) Monocytes # (Auto) 0.1 x10^3/uL (0.0-1.1) Eosinophils # (Auto) 0.0 x10^3/uL (0.0-0.7) Basophils # (Auto) 0.0 x10^3/uL (0.0-0.2) Sodium Level 141 mmol/L (136-145) Potassium Level 3.8 mmol/L (3.5-5.1) Chloride Level 108 mmol/L (98-107) Carbon Dioxide Level 24 mmol/L (21-32) Anion Gap 9 (6-14) Blood Urea Nitrogen 12 mg/dL (7-20) Creatinine 0.9 mg/dL (0.6-1.0) Estimated GFR (Cockcroft-Gault) 65.5 Glucose Level 183 mg/dL (70-99) Calcium Level 8.5 mg/dL (8.5-10.1) Medications Active Scripts Medications Dose Route/Sig Max Daily Dose Days Date Category Dose Instructions Trelegy Ellipta 100-62.5-25 (Fluticasone/Umeclidin/Vilanter) 1 Each Blst.w.dev 1 Puff PO DAILY 05/18/21 Reported Keflex (Cephalexin) 500 Mg Capsule 1 Cap PO BID 05/18/21 Reported started Caltrate 600 + D Tablet (Calcium Carbonate/Vitamin D3) 1 Each Tablet 1 Each PO BID 08/07/15 Reported Zyrtec (Cetirizine Hcl) 10 Mg Tablet 1 Tab PO DAILY 08/07/15 Reported Flonase Allergy Relief (Fluticasone Propionate) 9.9 Ml [place].susp 2 Sprays NS DAILY 08/07/15 Reported Albuterol Sulfate Neb Soln (Albuterol Sulfate) 2.5 Mg/3 Ml Vial.neb 1 Vial NEB PRN Q4HRS PRN 08/07/15 Reported Ventolin Hfa Inhaler (Albuterol Sulfate) 18 Gm Hfa.aer.ad 2 Puff INH Q4HRS PRN 08/07/15 Reported Multivitamins (Multivitamin) 1 Each Tablet 1 Tab PO DAILY 03/18/15 Reported Impression . FULL NOTE DICTATED BRONCH IN AM THANKS CONTINUE THE SAME FOR NOW GARETH MAY MD May 19, 2021 10:32
[2021-05-19 11:00] VITALS: BP 119/54
[2021-05-19] MEDS ORDERED: BENZONATATE 100 MG CAPSULE. PO PRN (11:45)
--- NOTE | 2021-05-19 11:54 | EKG ---
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
[2021-05-19] MEDS: LORazepam 0.5 MG TABLET PO PRN ×2 (12:02→21:24)
[2021-05-19] MEDS: BENZOCAINE/MENTHOL LOZENGE. PO PRN (12:03)
--- NOTE | 2021-05-19 12:10 | PDOC ---
[employer] PROGRESS NOTE Date of Service DOS: DATE: 05/19/21 TIME: 12:06 Chief Complaint Chief Complaint Acute hypoxic respiratory failure Acute asthma exacerbation Chronic cough Acute UTI History of MAC Continue with breathing treatments nebulizer Continue the IV steroids Pending pulmonology evaluation Continue chest physiotherapy Continue empiric IV antibiotics Consider azithromycin for anti-inflammatory effect Patient refusing DVT prophylaxis SCD and ambulation for DVT prophylaxis Protonix while on steroids GI prophylaxis ADA diet CODE STATUS full Discussed with RN and SW Disposition pending pulmonology evaluation DPOA: History of Present Illness History of Present Illness 51-year-old female with known prior lung disease, admit for progressively worsening shortness of breath over days. She has dry chronic cough, has 3 days of worsening shortness of breath and chills, which is normal for an exacerbation for her. In the waiting room, she was severely dyspneic, RT called stat to the ER. Treated as asthma, BIPAP started, steroids, Dr. Gomez found she was moving very little air and struggling to breathe. 05/19/2021 No acute events overnight. Patient seen examined bedside. Still having cough but saturating 95% on 2 L nasal cannula. No wheezing on my exam. Requesting Tessalon Perles. Patient does follow-up closely with Dr. 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 Patient clinically feels about the same since admission but is not requiring BiPAP. Patient's chart, labs, images were reviewed and discussed with RN Vitals/I&O Vitals/I&O: Vital Signs Date Time Temp Pulse Resp B/P (MAP) Pulse Ox O2 Delivery O2 Flow Rate FiO2 05/19/21 11:33 98 Nasal Cannula 2.0 05/19/21 07:00 97.6 93 22 100/65 (77) 97.6 I & O 05/18/21 05/18/21 05/19/21 15:00 23:00 07:00 Intake Total 1050 ml 940 ml Output Total 650 ml 200 ml Balance 400 ml 740 ml Physical Exam General: Alert, Oriented X3, Cooperative, mild distress, moderate distress Lungs: Clear, Other Abdomen: Normal bowel sounds Extremities: No clubbing, No edema Skin: No breakdown Labs Labs: Laboratory Tests Test 05/18/21 17:22 05/18/21 17:33 05/18/21 19:04 4/10/22 19:05 White Blood Count 10.6 x10^3/uL (4.0-11.0) Red Blood Count 4.89 x10^6/uL (3.50-5.40) Hemoglobin 14.4 g/dL (12.0-15.5) Hematocrit 41.7 % (36.0-47.0) Mean Corpuscular Volume 85 fL (79-100) Mean Corpuscular Hemoglobin 30 pg (25-35) Mean Corpuscular Hemoglobin Concent 35 g/dL (31-37) Red Cell Distribution Width 14.4 % (11.5-14.5) Platelet Count 297 x10^3/uL (140-400) Neutrophils (%) (Auto) 71 % (31-73) Lymphocytes (%) (Auto) 17 % (24-48) Monocytes (%) (Auto) 10 % (0-9) Eosinophils (%) (Auto) 1 % (0-3) Basophils (%) (Auto) 1 % (0-3) Neutrophils # (Auto) 7.5 x10^3/uL (1.8-7.7) Lymphocytes # (Auto) 1.8 x10^3/uL (1.0-4.8) Monocytes # (Auto) 1.1 x10^3/uL (0.0-1.1) Eosinophils # (Auto) 0.1 x10^3/uL (0.0-0.7) Basophils # (Auto) 0.1 x10^3/uL (0.0-0.2) D-Dimer (Moni) < 0.27 ug/mlFEU Sodium Level 142 mmol/L (136-145) Potassium Level 3.9 mmol/L (3.5-5.1) Chloride Level 104 mmol/L (98-107) Carbon Dioxide Level 27 mmol/L (21-32) Anion Gap 11 (6-14) Blood Urea Nitrogen 10 mg/dL (7-20) Creatinine 1.0 mg/dL (0.6-1.0) Estimated GFR (Cockcroft-Gault) 58.0 BUN/Creatinine Ratio 10 (6-20) Glucose Level 96 mg/dL (70-99) Calcium Level 9.2 mg/dL (8.5-10.1) Magnesium Level 1.8 mg/dL (1.8-2.4) Total Bilirubin 0.2 mg/dL (0.2-1.0) Aspartate Amino Transf (AST/SGOT) 49 U/L (15-37) Alanine Aminotransferase (ALT/SGPT) 60 U/L (14-59) Alkaline Phosphatase 125 U/L (46-116) Troponin I High Sensitivity < 4 ng/L (4-50) 5 ng/L (4-50) CM-Xvb-K-Type Natriuretic Peptide 224 pg/mL (0-124) Total Protein 7.5 g/dL (6.4-8.2) Albumin 4.0 g/dL (3.4-5.0) Albumin/Globulin Ratio 1.1 (1.0-1.7) O2 Saturation 99 % (92-99) Arterial Blood pH 7.54 (7.35-7.45) Arterial Blood pCO2 at Patient Temp 27 mmHg (35-46) Arterial Blood pO2 at Patient Temp 136 mmHg (75-108) Arterial Blood HCO3 22 mmol/L (21-28) Arterial Blood Base Excess 1 mmol/L (-3-3) FiO2 10 l mask Influenza Type A Antigen Negative (NEGATIVE) Influenza Type B Antigen Negative (NEGATIVE) SARS-CoV-2 Antigen (Rapid) Negative (NEGATIVE) Test 05/18/21 21:55 05/19/21 04:15 Troponin I High Sensitivity 5 ng/L (4-50) 7 ng/L (4-50) White Blood Count 5.4 x10^3/uL (4.0-11.0) Red Blood Count 4.22 x10^6/uL (3.50-5.40) Hemoglobin 12.0 g/dL (12.0-15.5) Hematocrit 36.1 % (36.0-47.0) Mean Corpuscular Volume 85 fL (79-100) Mean Corpuscular Hemoglobin 28 pg (25-35) Mean Corpuscular Hemoglobin Concent 33 g/dL (31-37) Red Cell Distribution Width 14.6 % (11.5-14.5) Platelet Count 208 x10^3/uL (140-400) Neutrophils (%) (Auto) 90 % (31-73) Lymphocytes (%) (Auto) 8 % (24-48) Monocytes (%) (Auto) 3 % (0-9) Eosinophils (%) (Auto) 0 % (0-3) Basophils (%) (Auto) 0 % (0-3) Neutrophils # (Auto) 4.8 x10^3/uL (1.8-7.7) Lymphocytes # (Auto) 0.4 x10^3/uL (1.0-4.8) Monocytes # (Auto) 0.1 x10^3/uL (0.0-1.1) Eosinophils # (Auto) 0.0 x10^3/uL (0.0-0.7) Basophils # (Auto) 0.0 x10^3/uL (0.0-0.2) Sodium Level 141 mmol/L (136-145) Potassium Level 3.8 mmol/L (3.5-5.1) Chloride Level 108 mmol/L (98-107) Carbon Dioxide Level 24 mmol/L (21-32) Anion Gap 9 (6-14) Blood Urea Nitrogen 12 mg/dL (7-20) Creatinine 0.9 mg/dL (0.6-1.0) Estimated GFR (Cockcroft-Gault) 65.5 Glucose Level 183 mg/dL (70-99) Calcium Level 8.5 mg/dL (8.5-10.1) Assessment and Plan Assessmemt and Plan Problems Medical Problems: (1) Acute hypoxemic respiratory failure Status: Acute (2) Asthma with acute exacerbation Status: Acute Comment Review of Relevant I have reviewed the following items carlos a (where applicable) has been applied. Medications: Current Medications Medications (Trade) Dose Ordered Sig/Dionisio Route PRN Reason Start Time Stop Time Status Last Admin Dose Admin Methylprednisolone Sodium Succinate (SOLU-Medrol 125MG VIAL) 125 mg 1X ONCE IV 05/18/21 17:15 05/18/21 17:21 DC 05/18/21 17:45 Magnesium Sulfate 50 ml @ 25 mls/hr 1X ONCE IV 05/18/21 17:15 05/18/21 19:14 DC 05/18/21 17:45 Sodium Chloride 1,000 ml @ 1,000 mls/hr 1X ONCE IV 05/18/21 17:15 05/18/21 18:14 DC 05/18/21 17:45 Albuterol/ Ipratropium (Duoneb) 3 ml Q4H [facility] 05/18/21 19:00 05/18/21 21:53 DC 05/18/21 21:23 Ceftriaxone Sodium (Rocephin) 1 gm 1X ONCE IVP 05/18/21 19:00 05/18/21 19:10 DC 05/18/21 19:46 Cetirizine HCl (ZyrTEC) 10 mg DAILY PO 05/19/21 09:00 05/19/21 08:41 Fluticasone Propionate (Flonase) 2 spray DAILY NS 05/19/21 09:00 05/19/21 08:43 Multivitamins (Thera M Plus) 1 tab QHS PO 05/18/21 22:00 05/18/21 22:17 Fluconazole (Diflucan) 100 mg DAILY PO 05/18/21 22:00 05/19/21 08:41 Cephalexin HCl (Keflex) 500 mg BID PO 05/18/21 22:00 05/22/21 22:00 05/19/21 08:41 Calcium/Vitamin D (Oscal D 500mg/ 200uts) 1 tab BIDWMEALS PO 05/18/21 22:00 05/19/21 08:41 Methylprednisolone Sodium Succinate (SOLU-Medrol 125MG VIAL) 62.5 mg Q12HR IV 05/19/21 09:00 05/19/21 08:43 Albuterol Sulfate (Ventolin Neb Soln) 2.5 mg PRN Q4HRS PRN NEB COUGH 05/18/21 22:30 05/19/21 05:56 Albuterol/ Ipratropium (Duoneb) 3 ml RTQID NEB 05/19/21 08:00 05/19/21 11:33 Budesonide (Pulmicort) 0.5 mg RTBID NEB 05/19/21 08:00 05/19/21 07:27 Lorazepam (Ativan) 0.25 mg PRN Q6HRS PRN PO ANXIETY / AGITATION 05/19/21 11:45 05/19/21 12:02 Benzonatate (Tessalon Perle) 100 mg PRN Q6HRS PRN PO COUGH 05/19/21 11:45 05/19/21 12:02 Throat Lozenges (Cepacol Sore Throat Lozenge) 1 kelsey PRN Q2HRS PRN PO SORE THROAT 05/19/21 11:45 05/19/21 12:03 Justifications for Admission Other Justification ZIGGY WILKINSON MD May 19, 2021 12:10
[2021-05-19 14:45] VITALS: BP 95/49
--- NOTE | 2021-05-19 15:00 | NUR ---
SS following for discharge planning. SS reviewed pt chart and discussed with pt RN. Pt is from home with spouse and is currently requiring oxygen at two liters nasal canula. COVID19 negative. Pulmonology following. Pt on IV Solu-Medrol. Bronchoscopy ordered. SS will continue to follow for discharge planning. Addendum: 05/19/21 at 1507 by AUBREY GORDON SS Pt has no home oxygen.
[2021-05-19] MEDS: PANTOPRAZOLE 40 MG TABLET.DR. PO SCH (17:14)
[2021-05-19 19:25] VITALS: BP 124/64
--- NOTE | 2021-05-19 20:46 | CONS ---
DATE OF CONSULTATION: 05/19/2021 ATTENDING PHYSICIAN: Sharlene Cross MD REASON FOR CONSULTATION: The patient is seen in pulmonary consultation at the request of Dr. Cross for abnormal x-ray, increasing shortness of breath, hypoxemia. HISTORY OF PRESENT ILLNESS: The patient is a 51-year-old that normally follows Dr. Loaiza in the office. She was seen in followup this past January. She had been hospitalized at [facility] with acute exacerbation of her obstructive lung disease. The patient back in 2017 was seen for persistent cough, persistent reticular nodular infiltrates with bronchiectasis. 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 She was treated for a year and a half with multiple medications including rifampin, azithromycin and ethambutol. Cultures were repeated at that time, they were negative as a consequence and the medications were discontinued. The patient was hospitalized at [facility] sometime in January of last year. She had a prior history of Pseudomonas, was treated for Pseudomonas with broad-spectrum antibiotics. She was then discharged home. She followed up in the office with Dr. Loaiza back in January. At that time, her bronchodilators were optimized. She has her vibrating vest at home. She does not normally use oxygen supplementation. The patient now comes in with increasing shortness of breath over the last 2-3 days, low-grade fever, cough productive of discolored sputum at times. Not much sputum production. Last night, she was having great difficulty with her respiratory status. She was started on BiPAP and steroids. Chest x-ray was reviewed, which revealed ill-defined infiltrates, which appeared to be chronic. The patient states that she has slightly improved since last evening. She continues to be short of breath with minimal exertion. She denies hemoptysis. PAST MEDICAL HISTORY: Mycobacterium avium complex as described above, previous history of Pseudomonas, chronic interstitial lung disease, bronchiectasis. Never smoked, prior history of possible asthma. ALLERGIES: ASPIRIN, CIPROFLOXACIN, DICLOFENAC, AND SHRIMP. PAST SURGICAL HISTORY: She has had previous lung biopsy. SOCIAL HISTORY: She has never smoked. FAMILY HISTORY: Noncontributory. CURRENT MEDICATIONS: List was reviewed. She is on nebulized treatments, vibrating vest, Pulmicort nebulized twice, Rocephin given once. She is currently on Keflex, Solu-Medrol. PHYSICAL EXAMINATION: GENERAL: The patient appeared to be slightly older than stated age. VITAL SIGNS: Stable. O2 saturation greater than 92%. HEENT: Eyes: The sclerae were nonicteric. NECK: Jugular venous distention was not elevated. No lymphadenopathy. CHEST: Full expansion. LUNGS: Crackles throughout both lung kasper. Adequate air flow with no wheezes. CARDIOVASCULAR: Regular rate and rhythm with S1, S2, no S3. ABDOMEN: Soft, nontender. EXTREMITIES: No clubbing, cyanosis or pitting edema. LABORATORY DATA: Reviewed. White count was normal, hemoglobin and hematocrit were noted. Arterial blood gas; pH of 7.54, PaCO2 of 27, pO2 of 136. Electrolytes were noted. BUN and creatinine were normal. Influenza screen and SARS-CoV-2 rapid test was negative. Chest x-ray personally reviewed as indicated above. IMPRESSION: 1. Acute hypoxemic respiratory failure, multifactorial. 2. Acute exacerbation of underlying obstructive lung disease, acute bronchiectasis. 3. History of Mycobacterium avium complex. 4. History of Pseudomonas. 5. Persistent cough. 6. Acute exacerbation of asthma. PLAN: 1. Considering the patient's extensive complicated past history, we will proceed with a diagnostic bronchoscopy rule out recurrent MAC versus Pseudomonas versus other atypical infections. 2. For now, we will continue steroids. 3. Continue current antibiotics, make adjustments on antibiotics after bronchoscopy. 4. Nebulized treatments. 5. DVT prophylaxis. 6. P.r.n. BiPAP. PATTIE DR: Janeth TID: [id number]
[2021-05-19] MEDS: MULTIVITAMIN with MINERAL TABLET. PO SCH (21:21)
[2021-05-19 22:45] VITALS: BP 103/54
[2021-05-20] VITALS (19 sets, daily range): BP systolic 80–120; BP diastolic 41–89
[2021-05-20] MEDS: ALBUTEROL SULFATE 2.5 MG/3 ML NEBU. NEB PRN ×2 (03:09→15:17)
[2021-05-20] MEDS: PANTOPRAZOLE 40 MG TABLET.DR. PO SCH (05:59)
[2021-05-20] MEDS ORDERED: PROCHLORPERAZINE 10 MG/2 ML VIAL. IVP PRN (06:00)
[2021-05-20] MEDS ORDERED: HYDROmorphone 2 MG/ML INJ. IVP PRN (06:00)
[2021-05-20] MEDS ORDERED: MORPHINE SULFATE 2 MG/ML INJ. IVP PRN (06:00)
[2021-05-20] MEDS ORDERED: IV RINGERS,LACTATED 1000ML 1,000 ML IV SCH (06:00)
[2021-05-20] MEDS ORDERED: fentaNYL PF VIAL 100 MCG/2 ML VIAL IVP PRN ×2 (06:00)
[2021-05-20] MEDS: BUDESONIDE 0.5 MG/2 ML NEBU. NEB SCH ×2 (07:59→20:53)
[2021-05-20] MEDS: IPRATRPIUM/ALBUTEROL 0.5/2.5MG 3 ML NEBU. NEB SCH ×4 (07:59→20:53)
[2021-05-20] MEDS: methylPREDNISolone SOD SUCC PF 125 MG/2 ML VIAL. IV SCH ×2 (08:16→20:10)
--- NOTE | 2021-05-20 09:12 | RAD ---
CT THORAX WO History: Cough, fever, history of MAC. Comparison: CT chest 05/19/2017. Technique: Noncontrast CT of the chest. Findings: Assessment is limited by lack of IV contrast. Cardiovascular: Normal heart size. Small pericardial effusion. Normal caliber aorta. No significant a therosclerotic calcification. Mediastinum and shayla: Enlarged mediastinal lymph nodes including 1.2 cm short axis node at the lower right pretracheal station (axial 26), enlarged from comparison. Small sliding hiatal hernia. Airways, lungs and pleura: Linear opacity in the distal trachea likely inspissated secretion. Mild di ffuse bronchial wall thickening and bronchiectasis. Tree-in-bud and groundglass opacities involving t he middle lobe, lingula and bilateral lower lobes predominantly appear minimally increased from karla rison. New 5 mm nodule right lower lobe (axial 57) Upper abdomen: Benign subcentimeter right hepatic lobe cyst. Osseous structures and soft tissues: Within normal limits for age. Impression: 1. Lower and middle lobe predominant pattern with bronchial wall thickening bronchiectasis, tree-in- bud nodule and groundglass opacity which is compatible with chronic infectious process such as MAC de scribed in history, minimally increased from 2018 comparison. 2. Interval enlargement of mediastinal lymph nodes including 1.2 cm short axis right lower pretrache al node. 3. New 5 mm right lower lobe nodule. Recommend follow-up according to 2017 Fleischner Society Guidel maynor for solid pulmonary nodules: <6 mm: In a low risk patient, no routine follow-up. In a high risk patient (history of smoking or other known risk factors), optional CT at 12 months. Certain paitents with suspicious nodule morphology, upper lobe location, or both may warrant 12-month follow-up. ------ Exposure: One or more of the following individualized dose reduction techniques were utilized for thi s examination: 1. Automated exposure control 2. Adjustment of the mA and/or kV according to patient size 3. Use of iterative reconstruction technique. With Electronically signed by: Jose Daniel Kim MD (05/20/2021 9:10 AM) [id number]
[2021-05-20] MEDS ORDERED: LIDOCAINE 2% VISCOUS for RT 15 ML SOLUTION. SWSW PRN (09:15)
[2021-05-20] MEDS ORDERED: LIDOCAINE 1% Multi-Dose 20 ML VIAL. INJ PRN (09:15)
[2021-05-20] MEDS ORDERED: LIDOCAINE 4% TOPICAL 50 ML SOLUTION. MM PRN (09:15)
[2021-05-20] MEDS ORDERED: EPINEPHrine 1 MG/ML VIAL INJ PRN (09:15)
[2021-05-20] MEDS ORDERED: LIDOCAINE 2% VISCOUS 100 ML BOTTLE. MM PRN (09:15)
[2021-05-20] MEDS ORDERED: KETAMINE HCL IN NACL, ISO-OSM 50 MG/5 ML SYRINGE ONE (09:45)
[2021-05-20] MEDS ORDERED: LIDOCAINE 2% PF 5 ML VIAL. ONE (09:51)
--- NOTE | 2021-05-20 10:12 | PDOC ---
PULMONARY PROGRESS NOTES DATE: 05/20/21 TIME: 10:10 Subjective Patient feels better. Currently on nasal cannula being has a mild dry cough. Vitals Vital Signs Date Time Temp Pulse Resp B/P (MAP) Pulse Ox O2 Delivery O2 Flow Rate FiO2 05/20/21 08:50 97.6 101 20 97 97.6 05/20/21 08:03 Nasal Cannula 2.0 05/20/21 07:00 116/61 (79) General: Alert, Oriented X4, No acute distress Lungs: Clear, Other (Decreased breath sounds at the bases posteriorly) Cardiovascular: S1, S2 Abdomen: Soft, Non-tender Extremities: No Edema Skin: Warm Labs Laboratory Tests Test 05/18/21 17:22 05/18/21 17:33 05/18/21 19:04 05/18/21 19:05 White Blood Count 10.6 x10^3/uL (4.0-11.0) Red Blood Count 4.89 x10^6/uL (3.50-5.40) Hemoglobin 14.4 g/dL (12.0-15.5) Hematocrit 41.7 % (36.0-47.0) Mean Corpuscular Volume 85 fL (79-100) Mean Corpuscular Hemoglobin 30 pg (25-35) Mean Corpuscular Hemoglobin Concent 35 g/dL (31-37) Red Cell Distribution Width 14.4 % (11.5-14.5) Platelet Count 297 x10^3/uL (140-400) Neutrophils (%) (Auto) 71 % (31-73) Lymphocytes (%) (Auto) 17 % (24-48) Monocytes (%) (Auto) 10 % (0-9) Eosinophils (%) (Auto) 1 % (0-3) Basophils (%) (Auto) 1 % (0-3) Neutrophils # (Auto) 7.5 x10^3/uL (1.8-7.7) Lymphocytes # (Auto) 1.8 x10^3/uL (1.0-4.8) Monocytes # (Auto) 1.1 x10^3/uL (0.0-1.1) Eosinophils # (Auto) 0.1 x10^3/uL (0.0-0.7) Basophils # (Auto) 0.1 x10^3/uL (0.0-0.2) D-Dimer (Moni) < 0.27 ug/mlFEU Sodium Level 142 mmol/L (136-145) Potassium Level 3.9 mmol/L (3.5-5.1) Chloride Level 104 mmol/L (98-107) Carbon Dioxide Level 27 mmol/L (21-32) Anion Gap 11 (6-14) Blood Urea Nitrogen 10 mg/dL (7-20) Creatinine 1.0 mg/dL (0.6-1.0) Estimated GFR (Cockcroft-Gault) 58.0 BUN/Creatinine Ratio 10 (6-20) Glucose Level 96 mg/dL (70-99) Calcium Level 9.2 mg/dL (8.5-10.1) Magnesium Level 1.8 mg/dL (1.8-2.4) Total Bilirubin 0.2 mg/dL (0.2-1.0) Aspartate Amino Transf (AST/SGOT) 49 U/L (15-37) Alanine Aminotransferase (ALT/SGPT) 60 U/L (14-59) Alkaline Phosphatase 125 U/L (46-116) Troponin I High Sensitivity < 4 ng/L (4-50) 5 ng/L (4-50) WL-Qpk-E-Type Natriuretic Peptide 224 pg/mL (0-124) Total Protein 7.5 g/dL (6.4-8.2) Albumin 4.0 g/dL (3.4-5.0) Albumin/Globulin Ratio 1.1 (1.0-1.7) O2 Saturation 99 % (92-99) Arterial Blood pH 7.54 (7.35-7.45) Arterial Blood pCO2 at Patient Temp 27 mmHg (35-46) Arterial Blood pO2 at Patient Temp 136 mmHg (75-108) Arterial Blood HCO3 22 mmol/L (21-28) Arterial Blood Base Excess 1 mmol/L (-3-3) FiO2 10 l mask Influenza Type A Antigen Negative (NEGATIVE) Influenza Type B Antigen Negative (NEGATIVE) SARS-CoV-2 Antigen (Rapid) Negative (NEGATIVE) Test 05/18/21 21:55 05/19/21 04:15 Troponin I High Sensitivity 5 ng/L (4-50) 7 ng/L (4-50) White Blood Count 5.4 x10^3/uL (4.0-11.0) Red Blood Count 4.22 x10^6/uL (3.50-5.40) Hemoglobin 12.0 g/dL (12.0-15.5) Hematocrit 36.1 % (36.0-47.0) Mean Corpuscular Volume 85 fL (79-100) Mean Corpuscular Hemoglobin 28 pg (25-35) Mean Corpuscular Hemoglobin Concent 33 g/dL (31-37) Red Cell Distribution Width 14.6 % (11.5-14.5) Platelet Count 208 x10^3/uL (140-400) Neutrophils (%) (Auto) 90 % (31-73) Lymphocytes (%) (Auto) 8 % (24-48) Monocytes (%) (Auto) 3 % (0-9) Eosinophils (%) (Auto) 0 % (0-3) Basophils (%) (Auto) 0 % (0-3) Neutrophils # (Auto) 4.8 x10^3/uL (1.8-7.7) Lymphocytes # (Auto) 0.4 x10^3/uL (1.0-4.8) Monocytes # (Auto) 0.1 x10^3/uL (0.0-1.1) Eosinophils # (Auto) 0.0 x10^3/uL (0.0-0.7) Basophils # (Auto) 0.0 x10^3/uL (0.0-0.2) Sodium Level 141 mmol/L (136-145) Potassium Level 3.8 mmol/L (3.5-5.1) Chloride Level 108 mmol/L (98-107) Carbon Dioxide Level 24 mmol/L (21-32) Anion Gap 9 (6-14) Blood Urea Nitrogen 12 mg/dL (7-20) Creatinine 0.9 mg/dL (0.6-1.0) Estimated GFR (Cockcroft-Gault) 65.5 Glucose Level 183 mg/dL (70-99) Calcium Level 8.5 mg/dL (8.5-10.1) Medications Active Scripts Medications Dose Route/Sig Max Daily Dose Days Date Category Dose Instructions Trelegy Ellipta 100-62.5-25 (Fluticasone/Umeclidin/Vilanter) 1 Each Blst.w.dev 1 Puff PO DAILY 05/18/21 Reported Keflex (Cephalexin) 500 Mg Capsule 1 Cap PO BID 05/18/21 Reported started Caltrate 600 + D Tablet (Calcium Carbonate/Vitamin D3) 1 Each Tablet 1 Each PO BID 08/07/15 Reported Zyrtec (Cetirizine Hcl) 10 Mg Tablet 1 Tab PO DAILY 08/07/15 Reported Flonase Allergy Relief (Fluticasone Propionate) 9.9 Ml [place].susp 2 Sprays NS DAILY 08/07/15 Reported Albuterol Sulfate Neb Soln (Albuterol Sulfate) 2.5 Mg/3 Ml Vial.neb 1 Vial NEB PRN Q4HRS PRN 08/07/15 Reported Ventolin Hfa Inhaler (Albuterol Sulfate) 18 Gm Hfa.aer.ad 2 Puff INH Q4HRS PRN 08/07/15 Reported Multivitamins (Multivitamin) 1 Each Tablet 1 Tab PO DAILY 03/18/15 Reported Impression . 1. Acute hypoxemic respiratory failure, multifactorial. 2. Patient with history of Mycobacterium avium complex infection. It was treated beginning of 2016 and was treated for approximately year and a half. Patient was culture negative for 12 months and medications were discontinued in 2018. Since then she has done reasonably well. Current admission could be related to bacterial pneumonia versus relapse with mild progression of Mycobacterium avium complex. Patient has history of Pseudomonas pneumonia in the past. 3. History of Mycobacterium avium complex. 4. History of Pseudomonas. 5. Persistent cough. 6. Acute exacerbation of asthma. Plan . PLAN: 1. Considering the patient's extensive complicated past history, we will proceed with a diagnostic bronchoscopy rule out recurrent MAC versus Pseudomonas versus other atypical infections. 2. For now, we will continue steroids. 3. Continue current antibiotics, make adjustments on antibiotics after bronchoscopy. 4. Nebulized treatments. 5. DVT prophylaxis. 6. P.r.n. BiPAP. 7. Risk and benefits of bronchoscopy discussed with the patient. She agrees to proceed with it. 8. Discontinue cephalexin and change to cefepime for pseudomonal coverage VALDEMAR YAN MD May 20, 2021 10:12
--- NOTE | 2021-05-20 11:11 | OP ---
INDICATIONS: Diffuse pneumonia, history of Mycobacterium avium complex and Pseudomonas pneumonia. DESCRIPTION OF PROCEDURE: Informed consent was obtained from the patient. She agreed to proceed with the procedure. Propofol was used by anesthesia. Bronch was introduced through the right nostril. The upper airway was passed. Vocal cords moves equally with respiration. Trachea was entered. Creamy to light yellow secretion seen in the distal trachea. Upon inspection of the left main stem bronchus, there were significant purulent secretions seen in the left upper lobe, lingula and also minimally in the left lower lobe so all secretions were removed. Bronchoalveolar lavage performed from the left upper lobe and the lingula. There was mucosal hyperemia. No endobronchial lesion seen. Bronch was introduced into the right mainstem. All subsegments of right upper, right middle and right lower lobe were examined. There were some white secretions seen throughout, but they were not purulent. Bronchoalveolar lavage performed from the right middle lobe. The patient tolerated the procedure well, except some coughing. No endobronchial lesion seen. IMPRESSION: 1. Thick purulent secretions seen in the left upper lobe and lingula suggestive of acute pneumonia. 2. Mucosal hyperemia seen in the left lung involving all the subsegments. 3. Bronchoalveolar lavage performed from the left upper lobe, lingula and right middle lobe and sent for appropriate studies. 4. No endobronchial lesion seen. 5. Follow the culture results including AFB. [facility]: Percy TID: [id number]
[2021-05-20] MEDS: CALCIUM CARB/VIT D3 500/200 TABLET. PO SCH ×2 (12:05→18:25)
[2021-05-20] MEDS: FLUTICASONE 50MCG/NASAL SPRAY 16GM BOTTLE. NS SCH (12:05)
[2021-05-20] MEDS: FLUCONAZOLE 100 MG TABLET. PO SCH (12:06)
[2021-05-20] MEDS: CETIRIZINE HCL 10 MG TABLET. PO SCH (12:06)
[2021-05-20] MEDS: CEFEPIME HCL IV Push 1 GM VIAL. IVP SCH ×2 (12:10→22:10)
--- NOTE | 2021-05-20 13:01 | PDOC ---
[employer] PROGRESS NOTE Date of Service DOS: DATE: 05/20/21 TIME: 13:00 Chief Complaint Chief Complaint Acute hypoxic respiratory failure pending bronchoscopy today Acute asthma exacerbation Chronic cough Acute UTI History of MAC Continue with breathing treatments nebulizer Continue the IV steroids Pending pulmonology evaluation Continue chest physiotherapy Continue empiric IV antibiotics Consider azithromycin for anti-inflammatory effect Patient refusing DVT prophylaxis SCD and ambulation for DVT prophylaxis Protonix while on steroids GI prophylaxis ADA diet CODE STATUS full Discussed with RN and SW Disposition pending pulmonology evaluation DPOA: History of Present Illness History of Present Illness 51-year-old female with known prior lung disease, admit for progressively worsening shortness of breath over days. She has dry chronic cough, has 3 days of worsening shortness of breath and chills, which is normal for an exacerbation for her. In the waiting room, she was severely dyspneic, RT called stat to the ER. Treated as asthma, BIPAP started, steroids, Dr. Gomez found she was moving very little air and struggling to breathe. 05/19/2021 No acute events overnight. Patient seen examined bedside. Still having cough but saturating 95% on 2 L nasal cannula. No wheezing on my exam. Requesting Tessalon Perles. Patient does follow-up closely with Dr. 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 Patient clinically feels about the same since admission but is not requiring BiPAP. Patient's chart, labs, images were reviewed and discussed with RN 05/20/2021 No acute events overnight. Patient seen examined bedside. Saturating 92% on 2 L nasal cannula. Cough is improved. Not requiring BiPAP overnight. Plan for bronchoscopy today to rule out pseudomonal or MAC or other atypical chronic infections. Patient's chart, labs, images were reviewed and discussed with RN Vitals/I&O Vitals/I&O: Vital Signs Date Time Temp Pulse Resp B/P (MAP) Pulse Ox O2 Delivery O2 Flow Rate FiO2 05/20/21 11:36 92 Nasal Cannula 2.0 05/20/21 11:10 97.8 89 20 109/69 97.8 I & O 05/19/21 05/19/21 05/20/21 15:00 23:00 07:00 Intake Total 1160 ml 180 ml 200 ml Output Total 600 ml 700 ml 500 ml Balance 560 ml -520 ml -300 ml Physical Exam General: Alert, Oriented X3, Cooperative, mild distress, moderate distress Heart: Regular rate Lungs: Clear, Other (Decreased breath sounds at the bases posteriorly) Abdomen: Normal bowel sounds Extremities: No clubbing, No edema Skin: No breakdown Assessment and Plan Assessmemt and Plan Problems Medical Problems: (1) Acute hypoxemic respiratory failure Status: Acute (2) Asthma with acute exacerbation Status: Acute Comment Review of Relevant I have reviewed the following items carlos a (where applicable) has been applied. Medications: Current Medications Medications (Trade) Dose Ordered Sig/Dionisio Route PRN Reason Start Time Stop Time Status Last Admin Dose Admin Pantoprazole Sodium (Protonix) 40 mg DAILYAC PO 05/19/21 16:30 05/20/21 05:59 Ringer's Solution 1,000 ml @ 30 mls/hr Q24H IV 05/20/21 06:00 05/20/21 17:59 05/20/21 08:53 Cefepime HCl (Maxipime) 1 gm Q8HRS IVP 05/20/21 11:00 05/20/21 12:10 Justifications for Admission Other Justification ZIGGY WILKINSON MD May 20, 2021 13:01
--- NOTE | 2021-05-20 13:05 | NUR ---
SS following up with discharge planning. SS reviewed pt chart and discussed with pt RN. Pt is currently requiring oxygen at two liters nasal canula. COVID19 negative. Pulmonology following. Bronchoscopy today. Pt on IV Solu-Medrol and IV Cefepime. Pt has no home oxygen. SS will continue to follow for discharge planning.
[2021-05-20] MEDS: BENZOCAINE/MENTHOL LOZENGE. PO PRN (14:53)
--- NOTE | 2021-05-20 17:38 | NUR ---
Patient arrived back to room around 1120 from bronchoscopy. Patient awake, alert. VSS. Around 1140 patient tried sip of water with RN in room & swallowed with no difficulty. Patient then ate lunch with no difficulty. Will continue to monitor.
[2021-05-20] MEDS: LACTOBACILLUS RHAMNOSUS GG 1 CAPSULE. PO SCH (20:11)
[2021-05-20] MEDS: MULTIVITAMIN with MINERAL TABLET. PO SCH (20:11)
[2021-05-21 03:00] VITALS: BP 102/60
[2021-05-21] MEDS: ALBUTEROL SULFATE 2.5 MG/3 ML NEBU. NEB PRN (03:30)
[2021-05-21] MEDS: CEFEPIME HCL IV Push 1 GM VIAL. IVP SCH ×3 (06:20→21:21)
[2021-05-21] MEDS: PANTOPRAZOLE 40 MG TABLET.DR. PO SCH (06:20)
[2021-05-21 07:00] VITALS: BP 128/69
[2021-05-21] MEDS: CALCIUM CARB/VIT D3 500/200 TABLET. PO SCH ×2 (09:25→17:15)
[2021-05-21] MEDS: CETIRIZINE HCL 10 MG TABLET. PO SCH (09:25)
[2021-05-21] MEDS: LACTOBACILLUS RHAMNOSUS GG 1 CAPSULE. PO SCH ×2 (09:25→21:21)
[2021-05-21] MEDS: FLUCONAZOLE 100 MG TABLET. PO SCH (09:26)
[2021-05-21] MEDS: FLUTICASONE 50MCG/NASAL SPRAY 16GM BOTTLE. NS SCH (09:26)
[2021-05-21] MEDS: methylPREDNISolone SOD SUCC PF 125 MG/2 ML VIAL. IV SCH ×2 (09:26→21:20)
[2021-05-21] MEDS: LORazepam 0.5 MG TABLET PO PRN (09:42)
[2021-05-21] MEDS: IPRATRPIUM/ALBUTEROL 0.5/2.5MG 3 ML NEBU. NEB SCH ×4 (10:00→20:30)
[2021-05-21] MEDS: BUDESONIDE 0.5 MG/2 ML NEBU. NEB SCH ×2 (10:00→20:30)
[2021-05-21 10:55] VITALS: BP 112/57
--- NOTE | 2021-05-21 11:38 | PDOC ---
[employer] PROGRESS NOTE Date of Service DOS: DATE: 05/21/21 TIME: 11:35 Chief Complaint Chief Complaint Acute hypoxic respiratory failure status post bronchoscopy 05/20/2021 Acute asthma exacerbation Chronic cough Acute UTI History of MAC Continue IV cefepime Pending bronchial cultures Continue with breathing treatments nebulizer Continue the IV steroids Pending pulmonology evaluation Continue chest physiotherapy Continue empiric IV antibiotics Consider azithromycin for anti-inflammatory effect Patient refusing DVT prophylaxis SCD and ambulation for DVT prophylaxis Protonix while on steroids GI prophylaxis ADA diet CODE STATUS full Discussed with RN and SW Disposition pending pulmonology evaluation DPOA: History of Present Illness History of Present Illness 51-year-old female with known prior lung disease, admit for progressively worsening shortness of breath over days. She has dry chronic cough, has 3 days of worsening shortness of breath and chills, which is normal for an exacerbation for her. In the waiting room, she was severely dyspneic, RT called stat to the ER. Treated as asthma, BIPAP started, steroids, Dr. Gomez found she was moving very little air and struggling to breathe. 05/19/2021 No acute events overnight. Patient seen examined bedside. Still having cough but saturating 95% on 2 L nasal cannula. No wheezing on my exam. Requesting Tessalon Perles. Patient does follow-up closely with Dr. 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 Patient clinically feels about the same since admission but is not requiring BiPAP. Patient's chart, labs, images were reviewed and discussed with RN 05/20/2021 No acute events overnight. Patient seen examined bedside. Saturating 92% on 2 L nasal cannula. Cough is improved. Not requiring BiPAP overnight. Plan for bronchoscopy today to rule out pseudomonal or MAC or other atypical chronic infections. Patient's chart, labs, images were reviewed and discussed with RN 05/21/2021 No acute events overnight. Patient seen examined bedside. Patient appears to clinically be better. Saturating 97% on 3 L nasal cannula. Not having much cough during our conversation. Bronchoscopy done showing purulent secretions in the left upper lobe. Antibiotics have been escalated to IV cefepime. Still awaiting bronchial cultures for ID and sensitivities. Vitals/I&O Vitals/I&O: Vital Signs Date Time Temp Pulse Resp B/P (MAP) Pulse Ox O2 Delivery O2 Flow Rate FiO2 05/21/21 10:55 97.2 97 20 112/57 (75) 96 Nasal Cannula 2.0 97.2 I & O 05/20/21 05/20/21 05/21/21 15:00 23:00 07:00 Intake Total 910 ml 780 ml 440 ml Output Total 1000 ml 900 ml Balance 910 ml -220 ml -460 ml Physical Exam General: Alert, Oriented X3, Cooperative, mild distress, moderate distress Heart: Regular rate Lungs: Clear, Other (Decreased breath sounds at the bases posteriorly) Abdomen: Normal bowel sounds Extremities: No clubbing, No edema Skin: No breakdown Assessment and Plan Assessmemt and Plan Problems Medical Problems: (1) Acute hypoxemic respiratory failure Status: Acute (2) Asthma with acute exacerbation Status: Acute Comment Review of Relevant I have reviewed the following items carlos a (where applicable) has been applied. Medications: Current Medications Medications (Trade) Dose Ordered Sig/Dionisio Route PRN Reason Start Time Stop Time Status Last Admin Dose Admin Lactobacillus Rhamnosus (Culturelle) 1 cap BID PO 05/20/21 21:00 05/21/21 09:25 Justifications for Admission Other Justification ZIGGY WILKINSON MD May 21, 2021 11:38
--- NOTE | 2021-05-21 11:41 | PDOC ---
PULMONARY PROGRESS NOTES DATE: 05/21/21 TIME: 11:38 Subjective Patient feels better. Currently on nasal cannula ,has a mild dry cough. Vitals Vital Signs Date Time Temp Pulse Resp B/P (MAP) Pulse Ox O2 Delivery O2 Flow Rate FiO2 05/21/21 10:55 97.2 97 20 112/57 (75) 96 Nasal Cannula 2.0 97.2 General: Alert, Oriented X4, No acute distress Lungs: Clear, Other (Decreased breath sounds at the bases posteriorly) Cardiovascular: S1, S2 Abdomen: Soft, Non-tender Extremities: No Edema Skin: Warm Medications Active Scripts Medications Dose Route/Sig Max Daily Dose Days Date Category Dose Instructions Trelegy Ellipta 100-62.5-25 (Fluticasone/Umeclidin/Vilanter) 1 Each Blst.w.dev 1 Puff PO DAILY 05/18/21 Reported Keflex (Cephalexin) 500 Mg Capsule 1 Cap PO BID 05/18/21 Reported started Caltrate 600 + D Tablet (Calcium Carbonate/Vitamin D3) 1 Each Tablet 1 Each PO BID 08/07/15 Reported Zyrtec (Cetirizine Hcl) 10 Mg Tablet 1 Tab PO DAILY 08/07/15 Reported Flonase Allergy Relief (Fluticasone Propionate) 9.9 Ml [place].susp 2 Sprays NS DAILY 08/07/15 Reported Albuterol Sulfate Neb Soln (Albuterol Sulfate) 2.5 Mg/3 Ml Vial.neb 1 Vial NEB PRN Q4HRS PRN 08/07/15 Reported Ventolin Hfa Inhaler (Albuterol Sulfate) 18 Gm Hfa.aer.ad 2 Puff INH Q4HRS PRN 08/07/15 Reported Multivitamins (Multivitamin) 1 Each Tablet 1 Tab PO DAILY 03/18/15 Reported Impression . 1. Acute hypoxemic respiratory failure, multifactorial. 2. Patient with history of Mycobacterium avium complex infection. It was treated beginning of 2017 and was treated for approximately year and a half. Patient was culture negative for 12 months and medications were discontinued in 2018. Since then she has done reasonably well. Current admission could be related to bacterial pneumonia versus relapse with mild progression of Mycobacterium avium complex. Patient has history of Pseudomonas pneumonia in the past. 3. History of Mycobacterium avium complex. 4. History of Pseudomonas. 5. Persistent cough. 6. Acute exacerbation of asthma. Plan . PLAN: 1. Status post bronchoscopy . Significant purulent secretions seen in the left lung. Cultures pending 2. Taper steroids. 3. Patient initiated on cefepime since 05/20/2021 to cover for Pseudomonas pneumonia 4. Nebulized treatments. 5. DVT prophylaxis. 6. P.r.n. BiPAP. 7. Discussed with Dr. Michele. VALDEMAR YAN MD May 21, 2021 11:41
[2021-05-21 15:00] VITALS: BP 119/55
--- NOTE | 2021-05-21 15:58 | NUR ---
SS following up with discharge planning. SS reviewed pt chart and discussed with pt RN. Pt is currently requiring oxygen at two liters nasal canula. COVID19 negative. Pulmonology following. Pt on IV Cefepime and IV Solu-Medrol. No home oxygen. SS will continue to follow for discharge planning.
--- NOTE | 2021-05-21 18:08 | NUR ---
Pt. on room air with sao2 >90% throughout day. Pt. stated that she was able to walk a couple times around the nursing station without oxygen or shortness of air. Therapist just checked on pt. to see if she wanted her breathing tx. She stated that she wanted to wait until around 1999. She appeared in no distress and was eating her dinner.
[2021-05-21 19:10] VITALS: BP 116/54
[2021-05-21] MEDS: MULTIVITAMIN with MINERAL TABLET. PO SCH (21:21)
[2021-05-21 22:15] VITALS: BP 124/67
[2021-05-22 02:23] VITALS: BP 132/77
[2021-05-22] MEDS: ALBUTEROL SULFATE 2.5 MG/3 ML NEBU. NEB PRN (02:50)
[2021-05-22] MEDS: PANTOPRAZOLE 40 MG TABLET.DR. PO SCH (05:20)
[2021-05-22] MEDS: CEFEPIME HCL IV Push 1 GM VIAL. IVP SCH ×3 (05:27→20:30)
[2021-05-22 07:00] VITALS: BP 108/57
[2021-05-22] MEDS: IPRATRPIUM/ALBUTEROL 0.5/2.5MG 3 ML NEBU. NEB SCH ×4 (07:18→21:53)
[2021-05-22] MEDS: BUDESONIDE 0.5 MG/2 ML NEBU. NEB SCH ×2 (07:18→21:53)
[2021-05-22] MEDS: FLUTICASONE 50MCG/NASAL SPRAY 16GM BOTTLE. NS SCH (09:02)
[2021-05-22] MEDS: FLUCONAZOLE 100 MG TABLET. PO SCH (09:03)
[2021-05-22] MEDS: LACTOBACILLUS RHAMNOSUS GG 1 CAPSULE. PO SCH ×2 (09:03→20:30)
[2021-05-22] MEDS: CALCIUM CARB/VIT D3 500/200 TABLET. PO SCH ×2 (09:03→17:35)
[2021-05-22] MEDS: CETIRIZINE HCL 10 MG TABLET. PO SCH (09:03)
[2021-05-22] MEDS: methylPREDNISolone SOD SUCC PF 125 MG/2 ML VIAL. IV SCH (09:06)
[2021-05-22 11:00] VITALS: BP 119/63
--- NOTE | 2021-05-22 11:15 | PDOC ---
[employer] PROGRESS NOTE Date of Service DOS: DATE: 05/22/21 TIME: 11:13 Chief Complaint Chief Complaint Acute hypoxic respiratory failure status post bronchoscopy 05/20/2021 Acute asthma exacerbation Chronic cough Acute UTI History of MAC Continue IV cefepime Pending bronchial cultures Continue with breathing treatments nebulizer Continue the IV steroids Pending pulmonology evaluation Continue chest physiotherapy Continue empiric IV antibiotics Consider azithromycin for anti-inflammatory effect Patient refusing DVT prophylaxis SCD and ambulation for DVT prophylaxis Protonix while on steroids GI prophylaxis ADA diet CODE STATUS full Discussed with RN and SW Disposition pending pulmonology evaluation DPOA: History of Present Illness History of Present Illness 51-year-old female with known prior lung disease, admit for progressively worsening shortness of breath over days. She has dry chronic cough, has 3 days of worsening shortness of breath and chills, which is normal for an exacerbation for her. In the waiting room, she was severely dyspneic, RT called stat to the ER. Treated as asthma, BIPAP started, steroids, Dr. Gomez found she was moving very little air and struggling to breathe. 05/19/2021 No acute events overnight. Patient seen examined bedside. Still having cough but saturating 95% on 2 L nasal cannula. No wheezing on my exam. Requesting Tessalon Perles. Patient does follow-up closely with Dr. Loaiza who is her forest botany instructor. Patient clinically feels about the same since admission but is not requiring BiPAP. Patient's chart, labs, images were reviewed and discussed with RN 05/20/2021 No acute events overnight. Patient seen examined bedside. Saturating 92% on 2 L nasal cannula. Cough is improved. Not requiring BiPAP overnight. Plan for bronchoscopy today to rule out pseudomonal or MAC or other atypical chronic infections. Patient's chart, labs, images were reviewed and discussed with RN 05/21/2021 No acute events overnight. Patient seen examined bedside. Patient appears to clinically be better. Saturating 97% on 3 L nasal cannula. Not having much cough during our conversation. Bronchoscopy done showing purulent secretions in the left upper lobe. Antibiotics have been escalated to IV cefepime. Still awaiting bronchial cultures for ID and sensitivities. 05/22/2021 No acute events overnight. Patient seen examined bedside. Saturating 97% on room air. Pending BAL culture sensitivities. Continue with IV cefepime for possible pseudomonal pneumonia. Patient's chart, labs, images were reviewed and discussed with RN Vitals/I&O Vitals/I&O: Vital Signs Date Time Temp Pulse Resp B/P (MAP) Pulse Ox O2 Delivery O2 Flow Rate FiO2 05/22/21 11:00 97.6 79 18 119/63 (81) 97 Room Air 97.6 05/21/21 10:55 2.0 I & O 05/21/21 05/21/21 05/22/21 15:00 23:00 07:00 Intake Total 360 ml 180 ml 500 ml Output Total 1025 ml 1300 ml Balance 360 ml -845 ml -800 ml Physical Exam General: Alert, Oriented X3, Cooperative, mild distress, moderate distress Heart: Regular rate Lungs: Clear, Other (Decreased breath sounds at the bases posteriorly) Abdomen: Normal bowel sounds Extremities: No clubbing, No edema Skin: No breakdown Assessment and Plan Assessmemt and Plan Problems Medical Problems: (1) Acute hypoxemic respiratory failure Status: Acute (2) Asthma with acute exacerbation Status: Acute Comment Review of Relevant I have reviewed the following items carlos a (where applicable) has been applied. Medications: Current Medications Medications (Trade) Dose Ordered Sig/Dionisio Route PRN Reason Start Time Stop Time Status Last Admin Dose Admin Linezolid/Dextrose 300 ml @ 300 mls/hr Q12HR IV 05/21/21 21:00 05/22/21 09:04 Justifications for Admission Other Justification ZIGGY WILKINSON MD May 22, 2021 11:15
--- NOTE | 2021-05-22 11:58 | PDOC ---
PULMONARY PROGRESS NOTES DATE: 05/22/21 TIME: 11:56 Subjective Patient feels better. Currently on nasal cannula ,has a mild dry cough. Vitals Vital Signs Date Time Temp Pulse Resp B/P (MAP) Pulse Ox O2 Delivery O2 Flow Rate FiO2 05/22/21 11:44 Room Air 05/22/21 11:00 97.6 79 18 119/63 (81) 97 97.6 05/22/21 08:00 2.0 General: Alert, Oriented X4, No acute distress Lungs: Clear, Other (Decreased breath sounds at the bases posteriorly) Cardiovascular: S1, S2 Abdomen: Soft, Non-tender Extremities: No Edema Skin: Warm Medications Active Scripts Medications Dose Route/Sig Max Daily Dose Days Date Category Dose Instructions Trelegy Ellipta 100-62.5-25 (Fluticasone/Umeclidin/Vilanter) 1 Each Blst.w.dev 1 Puff PO DAILY 05/18/21 Reported Keflex (Cephalexin) 500 Mg Capsule 1 Cap PO BID 05/18/21 Reported started Caltrate 600 + D Tablet (Calcium Carbonate/Vitamin D3) 1 Each Tablet 1 Each PO BID 08/07/15 Reported Zyrtec (Cetirizine Hcl) 10 Mg Tablet 1 Tab PO DAILY 08/07/15 Reported Flonase Allergy Relief (Fluticasone Propionate) 9.9 Ml [place].susp 2 Sprays NS DAILY 08/07/15 Reported Albuterol Sulfate Neb Soln (Albuterol Sulfate) 2.5 Mg/3 Ml Vial.neb 1 Vial NEB PRN Q4HRS PRN 08/07/15 Reported Ventolin Hfa Inhaler (Albuterol Sulfate) 18 Gm Hfa.aer.ad 2 Puff INH Q4HRS PRN 08/07/15 Reported Multivitamins (Multivitamin) 1 Each Tablet 1 Tab PO DAILY 03/18/15 Reported Impression . 1. Acute hypoxemic respiratory failure, multifactorial. 2. Patient with history of Mycobacterium avium complex infection. It was treated beginning of 2016 and was treated for approximately year and a half. Patient was culture negative for 12 months and medications were discontinued in 2018. Since then she has done reasonably well. Current admission could be related to bacterial pneumonia versus relapse with mild progression of Mycobacterium avium complex. Patient has history of Pseudomonas pneumonia in the past. 3. History of Mycobacterium avium complex. 4. History of Pseudomonas. 5. Persistent cough. 6. Acute exacerbation of asthma. Plan . PLAN: 1. Status post bronchoscopy . Significant purulent secretions seen in the left lung. Preliminary showed gram-positive cocci. Zyvox added this morning. Await final cultures 2. Taper steroids. 3. Patient initiated on cefepime since 05/20/2021 to cover for Pseudomonas pneumonia 4. Nebulized treatments. 5. DVT prophylaxis. 6. Patient continues to improve clinically. Possible discharge in 24 hours if final cultures from the bronchoscopy negative 7. Discussed with Dr. Michele. VALDEMAR YAN MD May 22, 2021 11:58
--- NOTE | 2021-05-22 12:36 | NUR ---
SS following up with discharge planning. SS reviewed pt chart and discussed with pt RN. Pt is currently on room air. COVID19 negative. Pulmonology following. Pt on IV Solu-Medrol, IV Zyvox, and IV Cefepime. Probable need for home healthcare when medically ready for discharge. SS will continue to follow for discharge planning.
[2021-05-22 14:33] VITALS: BP 106/63
[2021-05-22 19:00] VITALS: BP 126/68
[2021-05-22] MEDS: methylPREDNISolone SOD SUCC PF 40 MG/ML VIAL. IV SCH (20:28)
[2021-05-22] MEDS: MULTIVITAMIN with MINERAL TABLET. PO SCH (20:30)
[2021-05-22 23:00] VITALS: BP 110/76
[2021-05-23 03:55] VITALS: BP 129/73
[2021-05-23] MEDS: PANTOPRAZOLE 40 MG TABLET.DR. PO SCH (06:18)
[2021-05-23] MEDS: CEFEPIME HCL IV Push 1 GM VIAL. IVP SCH ×2 (06:18→12:44)
[2021-05-23 07:00] VITALS: BP 98/65
[2021-05-23] MEDS: BUDESONIDE 0.5 MG/2 ML NEBU. NEB SCH (07:23)
[2021-05-23] MEDS: IPRATRPIUM/ALBUTEROL 0.5/2.5MG 3 ML NEBU. NEB SCH ×3 (07:23→15:45)
[2021-05-23] MEDS: FLUTICASONE 50MCG/NASAL SPRAY 16GM BOTTLE. NS SCH (08:26)
[2021-05-23] MEDS: CALCIUM CARB/VIT D3 500/200 TABLET. PO SCH (08:27)
[2021-05-23] MEDS: FLUCONAZOLE 100 MG TABLET. PO SCH (08:27)
[2021-05-23] MEDS: CETIRIZINE HCL 10 MG TABLET. PO SCH (08:27)
[2021-05-23] MEDS: LACTOBACILLUS RHAMNOSUS GG 1 CAPSULE. PO SCH (08:27)
[2021-05-23] MEDS: methylPREDNISolone SOD SUCC PF 40 MG/ML VIAL. IV SCH (08:28)
--- NOTE | 2021-05-23 09:01 | PDOC ---
PULMONARY PROGRESS NOTES DATE: 05/23/21 TIME: 08:57 Subjective Patient feels better. Currently on nasal cannula ,has a mild dry cough. Vitals Vital Signs Date Time Temp Pulse Resp B/P (MAP) Pulse Ox O2 Delivery O2 Flow Rate FiO2 05/23/21 07:27 97 Room Air 05/23/21 07:00 97.4 89 20 98/65 (76) 97.4 05/22/21 08:00 2.0 General: Alert, Oriented X4, No acute distress Lungs: Clear, Other (Decreased breath sounds at the bases posteriorly) Cardiovascular: S1, S2 Abdomen: Soft, Non-tender Extremities: No Edema Skin: Warm Medications Active Scripts Medications Dose Route/Sig Max Daily Dose Days Date Category Dose Instructions Trelegy Ellipta 100-62.5-25 (Fluticasone/Umeclidin/Vilanter) 1 Each Blst.w.dev 1 Puff PO DAILY 05/18/21 Reported Keflex (Cephalexin) 500 Mg Capsule 1 Cap PO BID 05/18/21 Reported started Caltrate 600 + D Tablet (Calcium Carbonate/Vitamin D3) 1 Each Tablet 1 Each PO BID 08/07/15 Reported Zyrtec (Cetirizine Hcl) 10 Mg Tablet 1 Tab PO DAILY 08/07/15 Reported Flonase Allergy Relief (Fluticasone Propionate) 9.9 Ml [place].susp 2 Sprays NS DAILY 08/07/15 Reported Albuterol Sulfate Neb Soln (Albuterol Sulfate) 2.5 Mg/3 Ml Vial.neb 1 Vial NEB PRN Q4HRS PRN 08/07/15 Reported Ventolin Hfa Inhaler (Albuterol Sulfate) 18 Gm Hfa.aer.ad 2 Puff INH Q4HRS PRN 08/07/15 Reported Multivitamins (Multivitamin) 1 Each Tablet 1 Tab PO DAILY 03/18/15 Reported Impression . 1. Acute hypoxemic respiratory failure, multifactorial. 2. Patient with history of Mycobacterium avium complex infection. It was treated beginning of 2016 and was treated for approximately year and a half. Patient was culture negative for 12 months and medications were discontinued in 2018. Since then she has done reasonably well. Current admission could be related to bacterial pneumonia versus relapse with mild progression of Mycobacterium avium complex. Patient has history of Pseudomonas pneumonia in the past. 3. History of Mycobacterium avium complex. 4. History of Pseudomonas. 5. Persistent cough. 6. Acute exacerbation of asthma. Plan . PLAN: 1. Status post bronchoscopy . Significant purulent secretions seen in the left lung. Preliminary showed gram-positive cocci. Zyvox added . Final cultures shows mixed upper respiratory alex. IV antibiotics can be discontinued and she can be changed to oral Vantin 2. Taper steroids. Oral tapering dose 3. Patient initiated on cefepime since 05/20/2021 to cover for Pseudomonas pneumonia. No evidence of Pseudomonas. 4. Nebulized treatments. 5. DVT prophylaxis. 6. Patient continues to improve clinically. 7. Okay to discharge her. Patient to follow-up with me in the office in June. We will review the final cultures to rule out VALDEMAR ZULETA MD May 23, 2021 09:01
[2021-05-23 11:00] VITALS: BP 111/62
[2021-05-23] MEDS ORDERED: CEFP200T PO (11:20)
--- NOTE | 2021-05-23 11:21 | DISCH ---
DISCHARGE INSTRUCTIONS Condition on Discharge Condition on Discharge: Stable Activity After Discharge Activity Instructions for Disc: Activity as tolerated Bathing Instructions: Shower-keep dressing dry Lifting Instructions after Dis: No heavy lifting Weight Bearing Status after Di: No restrictions Diet after Discharge Diet after Discharge: Regular Wound Incision Care Wound/Incision Care: Change dressing, Reinforce dressing PRN Wound Care Equipment: Dressings Follow-Up Follow up with: PCP within 2 weeks of discharge Follow Up With: Pulmonary as scheduled and as needed Treatment/Equipment after DC Adaptive Equipment Issued: None ZIGGY WILKINSON MD May 23, 2021 11:21
[2021-05-23 15:00] VITALS: BP 116/62
--- NOTE | 2021-05-23 17:42 | NUR ---
Discharge orders reviewed with patient et , patient voices understanding et denies questions or concerns at this time. Patient ambulated to front entrance et left via private vehicle driven by her . All belongings taken with patient at time of discharge.
--- NOTE | 2021-05-27 11:12 | PATHOLOGY ---
Note [facility] Accession Number: [id number] TESTS RESULT FLAG UNITS REF RANGE LAB Clinician Provided Cytology Information No. of containers..01 Other (Miscellaneous) Source: POOLED BAL DIAGNOSIS: 02 POOLED BAL NEGATIVE FOR MALIGNANT CELLS. PULMONARY MACROPHAGES PRESENT, INDICATIVE OF LOWER RESPIRATORY TRACT SAMPLING. Signed out by: 02 Jules Zhou MD, Pathologist NPI- [id number] Performed by: Emily Bill, Sand Tester ([facility]) Gross description: 01 1 ML, COLORLESS, CLEAR /LCS 05/26/2021 1632 Local FLAG LEGEND: L-Low Normal,H-High Normal,LL-Alert Low,HH-Alert High <-Panic Low,>-Panic High,A-Abnormal,AA-Critical Abnormal Performed at: 01 [facility] [address] [place] [address] Deondre Felton MD, 02 [facility] [address] [place] [address] Jules Zhou MD, Specimen Comment: A courtesy copy of this report has been sent to [phone] Specimen Comment: [phone], Specimen Comment: Report sent to , DR MCINTYRE / DR MOLINA Specimen Comment: A duplicate report has been generated due to demographic updates. Performed at: 01 [facility] [address], [place], [place] [id number] MD Deondre Felton MD Phone: [phone]
--- NOTE | 2021-05-27 17:05 | PDOC3 ---
[facility]-Discharge Summary Date of Admission: Date of Admission: May 18, 2021 Date of Discharge: Date of Discharge: May 23, 2021 Discharge Diagnosis: Discharge Diagnosis: Acute hypoxic respiratory failure status post bronchoscopy 05/20/2021 Acute asthma exacerbation Chronic cough Acute UTI History of MAC Consults: Consults: Per pulmonary: PLAN: 1. Status post bronchoscopy . Significant purulent secretions seen in the left lung. Preliminary showed gram-positive cocci. Zyvox added . Final cultures shows mixed upper respiratory alex. IV antibiotics can be discontinued and she can be changed to oral Vantin 2. Taper steroids. Oral tapering dose 3. Patient initiated on cefepime since 05/20/2021 to cover for Pseudomonas pneumonia. No evidence of Pseudomonas. 4. Nebulized treatments. 5. DVT prophylaxis. 6. Patient continues to improve clinically. 7. Okay to discharge her. Patient to follow-up with me in the office in June. We will review the final cultures to rule out MAC Hospital Course: Hospital Course: 51-year-old female with known prior lung disease, admit for progressively worsening shortness of breath over days. She has dry chronic cough, has 3 days of worsening shortness of breath and chil ls, which is normal for an exacerbation for her. In the waiting room, she was severely dyspneic, RT called stat to the ER. Treated as asthma, BIPAP started, steroids, Dr. Gomez found she was moving very little air and struggling to breathe. 05/19/2021 No acute events overnight. Patient seen examined bedside. Still having cough but saturating 95% on 2 L nasal cannula. No wheezing on my exam. Requesting Tescarlota Perles. Patient does follow-up closely with Dr. Loaiza who is her evp strategy. Patient clinically feels about the same since admission but is not requiring BiPAP. Patient's chart, labs, images were reviewed and discussed with RN 05/20/2021 No acute events overnight. Patient seen examined bedside. Saturating 92% on 2 L nasal cannula. Cough is improved. Not requiring BiPAP overnight. Plan for bronchoscopy today to rule out pseudomonal or MAC or other atypical chronic infections. Patient's chart, labs, images were reviewed and discussed with RN 05/21/2021 No acute events overnight. Patient seen examined bedside. Patient appears to clinically be better. Saturating 97% on 3 L nasal cannula. Not having much cou gh during our conversation. Bronchoscopy done showing purulent secretions in the left upper lobe. Antibiotics have been escalated to IV cefepime. Still awaiting bronchial cultures for ID and sensitivities. 05/22/2021 No acute events overnight. Patient seen examined bedside. Saturating 97% on room air. Pending BAL culture sensitivities. Continue with IV cefepime for possible pseudomonal pneumonia. Patient's chart, labs, images were reviewed and discussed with RN By day of discharge patient was doing well without any acute cough. She was saturating well on room air. We will discharge the patient home and have patient follow-up closely with AFB and fungal cultures. She will go home with cefpodoxime for another 5 days. Continue with rest of her asthma medications as usual. She will follow-up closely with pulmonology. See recommendations above. Rest of hospital course was uneventful Disposition: Disposition/Orders: D/C to Home Activity: Activity: Resume previous activity Diet: Diet: Cardiac Medications: Home Meds Active Scripts Cefpodoxime Proxetil (CEFPODOXIME PROXETIL) 200 Mg Tablet, 1 TAB PO BID for pneumonia for 5 Days, #10 TAB Prov:ZIGGY WILKINSON MD 05/23/21 Reported Medications Fluticasone/Umeclidin/Vilanter ([place] Ellipta 100-62.5-25) 1 Each Blst.w.dev, 1 PUFF PO DAILY for COPD 05/18/21 Calcium Carbonate/Vitamin D3 (CALTRATE 600 + D TABLET) 1 Each Tablet, 1 EACH PO BID 08/07/15 Fluticasone Propionate (Flonase Allergy Relief) 9.9 Ml [place].susp, 2 SPRAYS NS DAILY, BOTTLE 08/07/15 Albuterol Sulfate (ALBUTEROL SULFATE NEB SOLN) 2.5 Mg/3 Ml Vial.neb, 1 VIAL NEB PRN Q4HRS PRN for COUGH, #50 VIAL 08/07/15 Albuterol Sulfate (VENTOLIN HFA INHALER) 18 Gm Hfa.aer.ad, 2 PUFF INH Q4HRS PRN for COUGH, INHALER 0 Refills 08/07/15 Multivitamin (MULTIVITAMINS) 1 Each Tablet, 1 TAB PO DAILY, #90 TAB 3 Refills 03/18/15 Discontinued Reported Medications Cephalexin (KEFLEX) 500 Mg Capsule, 1 CAP PO BID for UTI started 05/18/21 Cetirizine Hcl (ZYRTEC) 10 Mg Tablet, 1 TAB PO DAILY, #30 TAB 2 Refills 08/07/15 Scheduled Calcium Carbonate/Vitamin D3 (Caltrate 600 + D Tablet), 1 EACH PO BID, (Reported) Cefpodoxime Proxetil (Cefpodoxime Proxetil), 1 TAB PO BID Fluticasone Propionate (Flonase Allergy Relief), 2 SPRAYS NS DAILY, (Reported) Fluticasone/Umeclidin/Vilanter ([place] Ellipta 100-62.5-25), 1 PUFF PO DAILY, (Reported) Multivitamin (Multivitamins), 1 TAB PO DAILY, (Reported) Scheduled PRN Albuterol Sulfate (Ventolin Hfa Inhaler), 2 PUFF INH Q4HRS PRN for COUGH, (Reported) Albuterol Sulfate (Albuterol Sulfate Neb Soln), 1 VIAL NEB PRN Q4HRS PRN for COUGH, (Reported) Discontinued Medications Cephalexin (Keflex), 1 CAP PO BID, (Reported) Cetirizine Hcl (Zyrtec), 1 TAB PO DAILY, (Reported) Total Time: Total Time: Total time spent was 40 minutes in preparing scripts, discharge planning with SWI and RN and preparing this discharge summary Patient seen and examined on day of discharge. No acute abnormal findings. Justicifation of Admission Dx: Justifications for Admission: Justification of Admission Dx: Yes Respiratory Failure: Severe Resp Distress ZIGGY WILKINSON MD May 27, 2021 17:04
== END 2021-05-23 17:00 | disposition home or self-care (01) | DRG 871 ==
LOC: ER 16:46 → 6 SOUTH 18:30
PROVIDERS: ADMIT Internal Medicine; ATTEND Internal Medicine
PROC: 5A09357 Assistance with Respiratory Ventilation, Less than 24 Consecutive Hours, Continuous Positive Airway Pressure (ICD-10-PCS; principal; 2021-05-18)
PROC: 5A09357 Assistance with Respiratory Ventilation, Less than 24 Consecutive Hours, Continuous Positive Airway Pressure (ICD-10-PCS; 2021-05-19)
PROC: 0B9H8ZX Drainage of Lung Lingula, Via Natural or Artificial Opening Endoscopic, Diagnostic (ICD-10-PCS; 2021-05-20)
PROC: 0B9G8ZX Drainage of Left Upper Lung Lobe, Via Natural or Artificial Opening Endoscopic, Diagnostic (ICD-10-PCS; 2021-05-20)
PROC: 0B9D8ZX Drainage of Right Middle Lung Lobe, Via Natural or Artificial Opening Endoscopic, Diagnostic (ICD-10-PCS; 2021-05-20)
DX: A41.9 Sepsis, unspecified organism (principal); J96.01 Acute respiratory failure with hypoxia; N39.0 Urinary tract infection, site not specified; A31.0 Pulmonary mycobacterial infection; J44.0 Chronic obstructive pulmonary disease with (acute) lower respiratory infection; J45.51 Severe persistent asthma with (acute) exacerbation; B37.9 Candidiasis, unspecified; Z87.01 Personal history of pneumonia (recurrent); Z20.822 Contact with and (suspected) exposure to COVID-19
CPT/HCPCS: 31622; 36415; 36600; 71045; 80048; 80053; 82805; 83735; 83880; 84484; 85025; 85379; 87040; 87070; 87102; 87116; 87205; 87428; 87801; 88112; 93005; 94640; 94660; 94760; 96365; 96366; 96375; J0692; J0696; J2020; J2920; J2930; J3475; J7030; J7120; 99291-25; G0378; J7613; J7626